=== PATIENT | male | born 1955 | race Caucasian/White ===

== ENCOUNTER 2020-02-20 07:19 | Outpatient (REF) | payer OTHER, SELFPAY ==
[2020-02-20 08:32] LABS: Prostate Specific Antigen 0.63 ng/mL (<0.05-4.0)
== END 2020-02-20 07:20 | disposition home or self-care (01) ==
LOC: HO.LAB 07:19
PROVIDERS: PCP Nurse Practitioner Family; Visit Provider Urology
DX: C61 Malignant neoplasm of prostate (principal)
CPT/HCPCS: 84153

== ENCOUNTER → 2020-02-26 14:01 | Outpatient (BNVA) | payer OTHER, SELFPAY | PROVIDERS: PCP Nurse Practitioner Family; Referring Provider Nurse Practitioner Family; Visit Provider Urology | DX: Z76.89 Persons encountering health services in other specified circumstances (principal) ==

== ENCOUNTER → 2020-02-26 15:33 | Outpatient (BNVA) | payer OTHER, SELFPAY | PROVIDERS: PCP Nurse Practitioner Family; Visit Provider Urology | DX: Z76.89 Persons encountering health services in other specified circumstances (principal) ==

== ENCOUNTER 2020-03-08 07:32 | Outpatient (REF) | payer OTHER, SELFPAY ==
[2020-03-08 07:36] VITALS: BP 148/71; PULSE 73; RESP 16; TEMP 36.2; O2SAT 99
[2020-03-08 07:41] VITALS: BMI 31.1
[2020-03-08 08:30] VITALS: BP 130/70; PULSE 96; RESP 16; O2SAT 97
--- NOTE | 2020-03-08 08:30 | MHC.SHP ---
Pre-Procedural Eval Section A The patient is an INPATIENT: No Changes since office visit: No Cold of Flu in the past 2 weeks, No New Medical Problems, No Changes in Medication and No Patient answered all questions The History & Physical has been completed within 30 days and I have reviewed it.: Yes Section B Chief Complaint: malignant neoplasm of prostate Allergies: Allergies Allergy/AdvReac Type Severity Reaction Status Date / Time No Known Allergies Allergy Mild NOT Unverified 11/26/19 14:39 [No Known Allergies*] APPLICABLE Plan I have reviewed the history and physical and performed a pertinent physical examination on my patient. No changes have occurred unless specified. - TRUS biopsy for cancer
--- NOTE | 2020-03-08 08:31 | W.PM.OPN ---
Operative Note Operative Note Date of Service: 03/08/20 Narrative: Preoperative diagnosis: Elevated PSA Postoperative diagnosis: Elevated PSA Procedure: 1. transrectal ultrasound measurement of prostate 2. transrectal ultrasound-guided pudendal nerve block 3. transrectal ultrasound-guided prostate biopsy 12 core Surgeon: Dr. Lake Marquez Anesthetic: Local Indications for procedure: Prostate Cancer Procedure: After informed consent was verified, the patient was brought into the procedure area and lay left-hand side down on the table. Patient identity confirmed. Perioperative antibiotics confirmed. Gel was placed per rectum Ultrasound probe was placed per rectum The prostate was measured in 3 dimensions Total volume equals 25 gm There were significant bilateral calcifications noted and the prostate was homogeneous in nature A ultrasound-guided pudendal nerve block was performed using 10 cc of 1% lidocaine. 8 cc was placed at the base and 2 cc of the apex. A 12 core biopsy was performed with 6 cores each side. Two cores were taken at the apex, mid and base. Cores were spaced between lateral and medial. He tolerated the procedure well. Was able to ambulate to bathroom after 5 minutes. Printed instructions regarding antibiotic use and common side effects such as low-grade temperature and bleeding were given.
--- NOTE | 2020-03-08 08:32 | PM.OP ---
Brief Operative Note Date of Service: 03/08/20 Pre-op diagnosis: prostate cancer Post-op diagnosis: same Procedure: 1.) Transrectal ultrasound guided 1) prostate measurement b) guided nerve block prostate c) 12 core biopsy Surgeon: Lake Marquez MD Anesthesia: local Estimated blood loss (mL): 0 Pathology: other (prostate 12 core) Condition: stable Disposition: same day
== END 2020-03-08 07:33 | disposition home or self-care (01) ==
LOC: HO.MS 07:32
PROVIDERS: PCP Nurse Practitioner Family; Visit Provider Urology
PROC: (CPT 55700; principal; 2020-03-08 08:00)
DX: C61 Malignant neoplasm of prostate (principal); N41.9 Inflammatory disease of prostate, unspecified; R97.20 Elevated prostate specific antigen [PSA]
CPT/HCPCS: 55700; 76942; 88305; 88344

== ENCOUNTER → 2020-03-18 09:23 | Outpatient (BNVA) | payer OTHER, SELFPAY | PROVIDERS: PCP Nurse Practitioner Family; Visit Provider Urology | DX: Z76.89 Persons encountering health services in other specified circumstances (principal) ==

== ENCOUNTER 2020-04-11 04:44 | Inpatient (IN) | payer OTHER, SELFPAY ==
[2020-04-11] VITALS (8 sets, daily range): BP systolic 120–169; BP diastolic 43–82; PULSE 58–97; RESP 14–20; TEMP 36.4–36.9; O2SAT 94–98; BMI 32.5; BMI 31.3
[2020-04-11 05:30] LABS: Glucose Urine UA NEG (NEG); Leukocyte Esterase Urine NEG (NEG); Nitrite Urine NEG (NEG); Specific Gravity - Urine >= 1.030 (1.005-1.025); Urine Blood TRACE (NEG); Urine Ketones 5 MG/DL (NEG); Urine Protein NEG (NEG-TRACE)
[2020-04-11 05:31] LABS: Appearance Urine CLEAR; Color Urine AMBER
[2020-04-11 05:40] LABS: Granular Casts Urine 0-2 /LPF; Mucus Urine 4+ /LPF; RBC Urine 0-2 /HPF (0); Squamous Epithelial Cell Urine 1+ /LPF; WBC Urine 0-2 /HPF (0-4)
--- NOTE | 2020-04-11 06:11 | ED.ABDPAIN ---
HPI - Abdominal Pain General Chief Complaint: Abdominal Pain Stated Complaint: Abd cramping Time Seen by Provider: 04/11/20 06:11 Source: patient Mode of arrival: ambulatory History of Present Illness HPI narrative: This is a 64-year-old male with significant past medical history of CAD, hypertension, prostate CA who presents with lower abdominal crampy like pain, nonradiating, associated with diarrhea and bright red blood at the end of the diarrheal episodes. This all started yesterday afternoon at approximately 4:00 p.m. and has not been associated with fever, chills, nausea, vomiting, shortness of breath, or chest pain. Patient also denies any urinary pain/burning/frequency. Related Data Home Medications Medication Instructions Recorded Confirmed amlodipine 5 mg tablet 5 mg PO DAILY 02/26/20 atorvastatin 20 mg tablet 20 mg PO DAILY 02/26/20 furosemide 40 mg tablet mg PO 02/26/20 metoprolol tartrate 50 mg tablet 75 mg PO BID 02/26/20 Previous Rx's Medication Instructions Recorded lisinopril 40 mg tablet 40 mg PO DAILY 90 Days #90 tab 12/28/19 finasteride 5 mg tablet 5 mg PO DAILY 90 Days #90 tab 02/16/20 Allergies Allergy/AdvReac Type Severity Reaction Status Date / Time No Known Allergies Allergy Mild NOT Verified 04/11/20 05:18 [No Known Allergies*] APPLICABLE Review of Systems Review of Systems Pertinent positives and negatives as stated in HPI 10 point review of systems is otherwise negative. Physical Exam Vital Signs: Vital Signs: Last Vital Signs Temp 98.4 F 04/11/20 05:19 Pulse 58 04/11/20 05:19 Resp 14 04/11/20 05:19 BP 169/70 H 04/11/20 05:19 Pulse Ox 97 04/11/20 05:19 Body Mass Index 32.5 VITAL SIGNS: Reviewed. GENERAL: Well developed, well nourished, in no acute distress. HEAD: Normocephalic/atraumatic, NECK: Supple, no adenopathy LUNGS: Normal breath sounds. No adventitious sounds or accessory muscle use. SpO2<97> CARDIOVASCULAR: Regular rate and rhythm without noted murmurs, no JVD or lower extremity edema. ABDOMEN: Soft, non-tender, non-distended with bowel sounds. PHYLLIS: No inflamed external hemorrhoids, rectal vault empty but able to obtain sample dark red blood, good rectal tone SKIN: Inspection of the skin reveals no rashes NEUROLOGIC: Alert and oriented x 4. Course Course Course Narrative: This is a 64-year-old male with history and clinical presentation suggestive of ischemic colitis, diverticular bleeding, diverticulitis, less likely gastroenteritis. Review of all investigations negative for evidence of anemia at this time, leukocytosis present and treated with IV Zosyn/blood cultures/lactic acid. CT scan pending to differentiate between ischemic versus diverticular GI bleed. Case discussed with inpatient hospitalist team who is agreeable for admission. MDM - Abdominal Pain Lab Data Result diagrams: 04/11/20 06:09 04/11/20 06:09 Labs: Lab Results 04/11/20 04/11/20 04/11/20 Range/Units 05:23 05:23 05:23 WBC Cancelled RBC Cancelled Hgb Cancelled Hct Cancelled MCV Cancelled MCH Cancelled MCHC Cancelled RDW Cancelled Plt Count Cancelled MPV Cancelled Immature Gran % (Auto) Cancelled Neut % (Auto) Cancelled Lymph % (Auto) Cancelled [place] % (Auto) Cancelled Eos % (Auto) Cancelled Baso % (Auto) Cancelled Lymph # (Auto) Cancelled [place] # (Auto) Cancelled Eos # (Auto) Cancelled Baso # (Auto) Cancelled Abs Immat Gran (auto) Cancelled Absolute Neuts (auto) Cancelled Absolute Nucleated RBC Cancelled Nucleated RBC % (auto) Cancelled Smear Tech's Comments PT 13.7 H (10.8-13.0) SEC INR 1.2 H (0.9-1.1) APTT 35.8 (24.1-38.0) SEC Hold Blue Top SEE NOTE Sodium Cancelled Potassium Cancelled Chloride Cancelled Carbon Dioxide Cancelled Anion Gap Cancelled BUN Cancelled Creatinine Cancelled Estim Creat Clear Calc Cancelled Estimated GFR Cancelled Random Glucose Cancelled Lactic Acid (0.5-2.0) mmol/L Calcium Cancelled Total Bilirubin Cancelled AST Cancelled ALT Cancelled Alkaline Phosphatase Cancelled Total Protein Cancelled Albumin Cancelled Urine Color Urine Appearance Urine pH (5.0-8.0) Ur Specific [place] (1.005-1.025) Urine Protein (NEG-TRACE) MG/DL Urine Glucose (UA) (NEG) MG/DL Urine Ketones (NEG) MG/DL Urine Blood (NEG) Urine Nitrite (NEG) Ur Leukocyte Esterase (NEG) Urine RBC (0) /HPF Urine WBC (0-4) /HPF Ur Squamous Epith Cells /LPF Urine Bacteria /LPF Granular Casts /LPF Urine Mucus /LPF Stool Occult Blood (NEG) Blood Type 04/11/20 04/11/20 04/11/20 Range/Units 05:23 06:09 06:09 WBC 15.5 H RBC 5.18 Hgb 15.1 Hct 46.3 MCV 89.4 MCH 29.2 MCHC 32.6 RDW 12.8 Plt Count 197 MPV 10.4 Immature Gran % (Auto) 0.3 Neut % (Auto) 75.2 H Lymph % (Auto) 12.4 L [place] % (Auto) 11.3 H Eos % (Auto) 0.3 Baso % (Auto) 0.5 Lymph # (Auto) 1.9 [place] # (Auto) 1.8 H Eos # (Auto) 0.1 Baso # (Auto) 0.1 Abs Immat Gran (auto) 0.05 H Absolute Neuts (auto) 11.7 H Absolute Nucleated RBC 0.000 Nucleated RBC % (auto) 0.0 Smear Tech's Comments VERIFIED PT (10.8-13.0) SEC INR (0.9-1.1) APTT (24.1-38.0) SEC Hold Blue Top Sodium 139 Potassium 4.8 Chloride 103 Carbon Dioxide 31 H Anion Gap 10 L BUN 22 H Creatinine 1.04 Estim Creat Clear Calc 90.2 Estimated GFR > 60 Random Glucose 130 H Lactic Acid (0.5-2.0) mmol/L Calcium 8.9 Total Bilirubin 1.0 AST 18 ALT 27 Alkaline Phosphatase 81 Total Protein 6.9 Albumin 4.0 Urine Color PRINCESS Urine Appearance CLEAR Urine pH 6.0 (5.0-8.0) Ur Specific [place] >= 1.030 H (1.005-1.025) Urine Protein NEG (NEG-TRACE) MG/DL Urine Glucose (UA) NEG (NEG) MG/DL Urine Ketones 5 (NEG) MG/DL Urine Blood TRACE (NEG) Urine Nitrite NEG (NEG) Ur Leukocyte Esterase NEG (NEG) Urine RBC 0-2 (0) /HPF Urine WBC 0-2 (0-4) /HPF Ur Squamous Epith Cells 1+ /LPF Urine Bacteria NONE /LPF Granular Casts 0-2 /LPF Urine Mucus 4+ /LPF Stool Occult Blood (NEG) Blood Type 04/11/20 04/11/20 04/11/20 Range/Units 06:19 07:13 07:13 WBC RBC Hgb Hct MCV MCH MCHC RDW Plt Count MPV Immature Gran % (Auto) Neut % (Auto) Lymph % (Auto) [place] % (Auto) Eos % (Auto) Baso % (Auto) Lymph # (Auto) [place] # (Auto) Eos # (Auto) Baso # (Auto) Abs Immat Gran (auto) Absolute Neuts (auto) Absolute Nucleated RBC Nucleated RBC % (auto) Smear Tech's Comments PT (10.8-13.0) SEC INR (0.9-1.1) APTT (24.1-38.0) SEC Hold Blue Top Sodium Potassium Chloride Carbon Dioxide Anion Gap BUN Creatinine Estim Creat Clear Calc Estimated GFR Random Glucose Lactic Acid 1.3 (0.5-2.0) mmol/L Calcium Total Bilirubin AST ALT Alkaline Phosphatase Total Protein Albumin Urine Color Urine Appearance Urine pH (5.0-8.0) Ur Specific [place] (1.005-1.025) Urine Protein (NEG-TRACE) MG/DL Urine Glucose (UA) (NEG) MG/DL Urine Ketones (NEG) MG/DL Urine Blood (NEG) Urine Nitrite (NEG) Ur Leukocyte Esterase (NEG) Urine RBC (0) /HPF Urine WBC (0-4) /HPF Ur Squamous Epith Cells /LPF Urine Bacteria /LPF Granular Casts /LPF Urine Mucus /LPF Stool Occult Blood POS (NEG) Blood Type O Positive Discharge Plan Discharge Clinical Impression: GI bleed Qualifiers: GI bleed type/associated pathology: unspecified gastrointestinal hemorrhage type Qualified Code(s): K92.2 - Gastrointestinal hemorrhage, unspecified Patient Disposition: Admitted As Inpatient [facility] Past Medical History Source: nursing notes reviewed Medical History CAD (coronary artery disease) Hypertension Prostate cancer Social History Social History Alcohol intake: current Alcohol intake frequency: a few times a month Smoking Status: Never smoker Use of substances other than those prescribed or required for medical reasons: No Advance Directives: No Advance Directives Information Provided: No
[2020-04-11 06:18] LABS: Basophils Absolute Auto 0.1 X10*3/uL (0.0-0.2); Basophils Percent Auto 0.5 % (0-2); Eosinophils Absolute Auto 0.1 X10*3/uL (0.0-0.4); Eosinophils Percent Auto 0.3 % (0-4); Hematocrit 46.3 % (42-52); Hemoglobin 15.1 g/dl (14.0-18.0); Imm Gran Abs Auto 0.05 X10*3/uL (0.00-0.03); Imm Gran Pct Auto 0.3 % (0.0-0.4); Lymphocytes Absolute Auto 1.9 X10*3/uL (1.2-4.9); Lymphocytes Percent Auto 12.4 % (20-40); MANUAL DIFF FLAG SCAN; Mean Corpuscular HGB Conc 32.6 g/dl (31.0-36.0); Mean Corpuscular Hemoglobin 29.2 pg (27.0-33.0); Mean Corpuscular Volume 89.4 fL (80-98); Mean Platelet Volume 10.4 fL (9.4-12.4); Monocytes Absolute Auto 1.8 X10*3/uL (0.1-1.2); Monocytes Percent Auto 11.3 % (2-11); Neutrophils Absolute Auto 11.7 X10*3/uL (2.0-8.3); Neutrophils Percent Auto 75.2 % (45-73); Platelet Count 197 X10*3/uL (160-400); Red Blood Count 5.18 X10*6/uL (4.60-5.80); Red Cell Distribution Width 12.8 % (11.0-16.0); SCAN SMEAR FLAG 1; White Blood Count 15.5 X10*3/uL (4.8-10.8)
[2020-04-11 06:34] LABS: OBS Int Ctl Valid YES; OBS1 POS (NEG)
[2020-04-11 06:40] LABS: SLIDE REVIEW VERIFIED
[2020-04-11 06:51] LABS: Alanine Aminotransferase 27 U/L (0-40); Alkaline Phosphatase 81 U/L (39-117); Anion Gap 10 (12-20); Aspartate Amino Transferase 18 U/L (5-37); Blood Urea Nitrogen 22 mg/dL (9-16); Calcium 8.9 mg/dL (8.4-10.2); Carbon Dioxide 31 mmol/L (22-29); Chloride 103 mmol/L (96-108); Creatinine Clr Calc Pharmacy 90.2; Estimated Glomerular Filt Rate > 60; Glucose Random 130 mg/dL (60-115); Potassium 4.8 mmol/L (3.3-5.1); Sodium 139 mmol/L (135-145); Total Protein 6.9 g/dL (6.5-8.0)
--- NOTE | 2020-04-11 07:00 | CT_ITS ---
EXAMINATION: CT OF THE ABDOMEN AND PELVIS WITH IV CONTRAST CLINICAL INFORMATION: GI bleeding COMPARISON: None TECHNIQUE: Axial images through the abdomen and pelvis with and without IV contrast. Patient received 85 mL of Omnipaque 350 intravenous contrast. Patient dose 201 6 mg/cm. This CT examination was performed using dose optimization techniques as appropriate, variously including the following: *Automated exposure control *Adjustment of mA and/or kV according to patient size (this includes techniques or standardized protocols for targeted exams where dose is matched to indication/reason for exam; i.e. extremities or head) *Use of iterative reconstruction technique FINDINGS: The lung bases are clear. The liver is low in attenuation suggestive of mild fatty infiltration. There are gallstones in the gallbladder. There is no biliary duct dilatation. The pancreas, spleen, adrenal glands and kidneys are unremarkable. The bladder is unremarkable. The prostate gland is unremarkable. There is wall thickening and edema of the left colon and sigmoid colon. There is stranding of the surrounding fat and slight prominence of the vasa recta. Appearance is compatible with colitis. No evidence of active GI bleeding is seen. The appendix is normal. The stomach is normal. There is shotty bilateral inguinal lymphadenopathy, right greater than left. No enlarged lymph nodes are seen. There is no ascites. There is evidence of atherosclerotic disease. No aneurysm is seen. The celiac axis, SMA and DEVON are patent. There is a right inguinal hernia containing fat. There are degenerative changes of the spine. CT/CT gi bleed abd pel wo/w con IMPRESSION: Colitis of the left colon and sigmoid colon. No evidence of active GI bleeding. Gallstones. Mild fatty infiltration of the liver.
[2020-04-11 07:08] LABS: INTERNATIONAL NORM RATIO 1.2 (0.9-1.1); Prothrombin Time 13.7 SEC (10.8-13.0)
[2020-04-11 07:11] LABS: Partial Thromboplastin Time 35.8 SEC (24.1-38.0)
[2020-04-11 07:45] LABS: Lactic Acid 1.3 mmol/L (0.5-2.0)
[2020-04-11] MEDS: Piperacillin Sodium/Tazobactam 3.375 GM in 0.9 % Sodium Chloride 50 ML IV (08:00)
[2020-04-11] MEDS: iohexoL 350 MG/ML 100 ML INFUS..BTL IV (09:04)
[2020-04-11 09:31] LABS: COVID-19 Test Negative (Negative); IDNOW Serial# 9DD0AD1C
--- NOTE | 2020-04-11 10:21 | PM.IMHP ---
History of Present Illness Date of Service: 04/11/20 Chief Complaint: Abdominal pain and bleeding 64 year old man presenting with abdominal cramping and red blood per rectum. He reported that its started suddenly yesterday with several episodes of diarrhea/loose stools. He denied nausea or vomiting. He takes a baby aspirin daily no other nsaids. Only rare alcohol use. His HH and blood pressure are stable, no further reported episodes of bleeding at the time of the interview. All labs within acceptable limits. Abd CT showed Colitis of the left colon and sigmoid colon without evidence of active GI bleeding, gallstones, Mild fatty infiltration of the liver. Review of Systems Review of Systems: Denies any recent fever chills or decrease in appetite respiratory denies any shortness of breath coverage production cardiovascular is adjustment of any PND or edema gastrointestinal See HPI genitourinary denies any dysuria frequency or hematuria musculoskeletal denies any joint pain or swelling neuropsych denies any weakness or seizures all other systems reviewed are negative [facility] Medical History CAD (coronary artery disease) Hypertension Prostate cancer Pertinent family history: No history of colon cancer Social History Alcohol intake: current Alcohol intake frequency: a few times a month Smoking Status: Never smoker Use of substances other than those prescribed or required for medical reasons: No Advance Directives: No Advance Directives Information Provided: No Meds Allergies Allergy/AdvReac Type Severity Reaction Status Date / Time No Known Allergies Allergy Mild NOT Verified 04/11/20 05:18 [No Known Allergies*] APPLICABLE Home Medications Medication Instructions Recorded Confirmed Type amlodipine 5 mg tablet 5 mg PO DAILY 02/26/20 04/11/20 History atorvastatin 20 mg tablet 20 mg PO DAILY 02/26/20 04/11/20 History furosemide 40 mg tablet 40 mg PO DAILY 02/26/20 04/11/20 History metoprolol tartrate 50 mg tablet 75 mg PO BID 02/26/20 04/11/20 History Physical Exam Vital Signs and Narrative: Vital Signs: Last Vital Signs Temp 98.4 F 04/11/20 05:19 Pulse 97 04/11/20 08:00 Resp 18 04/11/20 08:00 BP 164/65 H 04/11/20 08:00 Pulse Ox 98 04/11/20 08:00 Body Mass Index 32.5 Appearing in no acute distress head is normocephalic atraumatic eyes pupils are PERRLA sclera is anicteric mouth throat mucous membranes are intact and moist neck is supple no lymphadenopathy, no JVD noted lung sounds are clear to auscultation heart regular rate rhythm, clear S1, S2 positive bowel sounds, abdomen is soft, nontender neuro patient is alert x3, no focal deficits Results Labs CBC and Chem 7: 04/11/20 06:09 04/11/20 06:09 Labs: Laboratory Results - last 24 hr 04/11/20 04/11/20 04/11/20 05:23 05:23 05:23 MCV Cancelled MCH Cancelled MCHC Cancelled RDW Cancelled Plt Count Cancelled MPV Cancelled Immature Gran % (Auto) Cancelled Neut % (Auto) Cancelled Lymph % (Auto) Cancelled [place] % (Auto) Cancelled Eos % (Auto) Cancelled Baso % (Auto) Cancelled Lymph # (Auto) Cancelled [place] # (Auto) Cancelled Eos # (Auto) Cancelled Baso # (Auto) Cancelled Abs Immat Gran (auto) Cancelled Absolute Neuts (auto) Cancelled Absolute Nucleated RBC Cancelled Nucleated RBC % (auto) Cancelled Smear Tech's Comments PT 13.7 H INR 1.2 H APTT 35.8 Hold Blue Top SEE NOTE Anion Gap Cancelled Estim Creat Clear Calc Cancelled Estimated GFR Cancelled Random Glucose Cancelled Lactic Acid Calcium Cancelled Total Bilirubin Cancelled AST Cancelled ALT Cancelled Alkaline Phosphatase Cancelled Total Protein Cancelled Albumin Cancelled Urine Color Urine Appearance Urine pH Ur Specific [place] Urine Protein Urine Glucose (UA) Urine Ketones Urine Blood Urine Nitrite Ur Leukocyte Esterase Urine RBC Urine WBC Ur Squamous Epith Cells Urine Bacteria Granular Casts Urine Mucus Stool Occult Blood COVID-19 (DAX) COVID-19 Clin Com Blood Type Antibody Screen 04/11/20 04/11/20 04/11/20 05:23 06:09 06:09 MCV 89.4 MCH 29.2 MCHC 32.6 RDW 12.8 Plt Count 197 MPV 10.4 Immature Gran % (Auto) 0.3 Neut % (Auto) 75.2 H Lymph % (Auto) 12.4 L [place] % (Auto) 11.3 H Eos % (Auto) 0.3 Baso % (Auto) 0.5 Lymph # (Auto) 1.9 [place] # (Auto) 1.8 H Eos # (Auto) 0.1 Baso # (Auto) 0.1 Abs Immat Gran (auto) 0.05 H Absolute Neuts (auto) 11.7 H Absolute Nucleated RBC 0.000 Nucleated RBC % (auto) 0.0 Smear Tech's Comments VERIFIED PT INR APTT Hold Blue Top Anion Gap 10 L Estim Creat Clear Calc 90.2 Estimated GFR > 60 Random Glucose 130 H Lactic Acid Calcium 8.9 Total Bilirubin 1.0 AST 18 ALT 27 Alkaline Phosphatase 81 Total Protein 6.9 Albumin 4.0 Urine Color [place]ESS Urine Appearance CLEAR Urine pH 6.0 Ur Specific [place] >= 1.030 H Urine Protein NEG Urine Glucose (UA) NEG Urine Ketones 5 Urine Blood TRACE Urine Nitrite NEG Ur Leukocyte Esterase NEG Urine RBC 0-2 Urine WBC 0-2 Ur Squamous Epith Cells 1+ Urine Bacteria NONE Granular Casts 0-2 Urine Mucus 4+ Stool Occult Blood COVID-19 (DAX) COVID-[place] Blood Type Antibody Screen 04/11/20 04/11/20 04/11/20 06:19 07:13 07:13 MCV MCH MCHC RDW Plt Count MPV Immature Gran % (Auto) Neut % (Auto) Lymph % (Auto) [place] % (Auto) Eos % (Auto) Baso % (Auto) Lymph # (Auto) [place] # (Auto) Eos # (Auto) Baso # (Auto) Abs Immat Gran (auto) Absolute Neuts (auto) Absolute Nucleated RBC Nucleated RBC % (auto) Smear Tech's Comments PT INR APTT Hold Blue Top Anion Gap Estim Creat Clear Calc Estimated GFR Random Glucose Lactic Acid 1.3 Calcium Total Bilirubin AST ALT Alkaline Phosphatase Total Protein Albumin Urine Color Urine Appearance Urine pH Ur Specific [place] Urine Protein Urine Glucose (UA) Urine Ketones Urine Blood Urine Nitrite Ur Leukocyte Esterase Urine RBC Urine WBC Ur Squamous Epith Cells Urine Bacteria Granular Casts Urine Mucus Stool Occult Blood POS COVID-19 (DAX) COVID-[place] Com Blood Type O Positive Antibody Screen NEGATIVE 04/11/20 09:03 MCV MCH MCHC RDW Plt Count MPV Immature Gran % (Auto) Neut % (Auto) Lymph % (Auto) [place] % (Auto) Eos % (Auto) Baso % (Auto) Lymph # (Auto) [place] # (Auto) Eos # (Auto) Baso # (Auto) Abs Immat Gran (auto) Absolute Neuts (auto) Absolute Nucleated RBC Nucleated RBC % (auto) Smear Tech's Comments PT INR APTT Hold Blue Top Anion Gap Estim Creat Clear Calc Estimated GFR Random Glucose Lactic Acid Calcium Total Bilirubin AST ALT Alkaline Phosphatase Total Protein Albumin Urine Color Urine Appearance Urine pH Ur Specific [place] Urine Protein Urine Glucose (UA) Urine Ketones Urine Blood Urine Nitrite Ur Leukocyte Esterase Urine RBC Urine WBC Ur Squamous Epith Cells Urine Bacteria Granular Casts Urine Mucus Stool Occult Blood COVID-19 (DAX) Negative COVID-19 Clin Com See Note Blood Type Antibody Screen Imaging Radiologist's Impressions: Impressions Abdomen/Pelvis CT 04/11/20 07:00 IMPRESSION: Colitis of the left colon and sigmoid colon. No evidence of active GI bleeding. Gallstones. Mild fatty infiltration of the liver. Assessment and Plan (1) GI bleed: Qualifiers: GI bleed type/associated pathology: unspecified gastrointestinal hemorrhage type Qualified Code(s): K92.2 - Gastrointestinal hemorrhage, unspecified Status: Acute 64 year old man admitted with GI Bleed. Abdominal CT showed colitis. Colitis. Levaquin and Flagyl. GI to follow. Check HH this evening. Hypertension. Stable, continue home medications. Prostate cancer. Under the management of urology. CAD. Continue Statin and BB. DVT prophylaxis with mechanical compression boots. Discussed witH Dr. Arizmendi Full code
--- NOTE | 2020-04-11 10:53 | PC.NURSE ---
seen by hospitalist waiting on bed assigment
[2020-04-11 12:25] LABS: Hematocrit 44.7 % (42-52); Hemoglobin 14.7 g/dl (14.0-18.0)
--- NOTE | 2020-04-11 14:18 | P.EN_ITS ---
Event Note Date of Service: 04/11/20 Event Note: 64-year-old gentleman with past medical history of hypertension, c oronary artery disease prostate cancer presented to [facility] with acute onset of abdominal cramping associated with diarrhea and bloody stool patient denies any prior similar episodes denies any history of colon cancer denies any weight loss, he denies any fever chills no other family member with similar symptoms, blood for showed elevated WBC stable hematocrit and electrolytes showed colitis of the left colon and sigmoid colons with no evidence of active GI bleed. Exam Patient awake alert no distress Abdomen soft mild tenderness lower abdomen, no rebound no rigidity no guarding bowel sounds audible Extremities no edema Assessment and plan Acute Colitis Will continue IV Flagyl and Levaquin follow CBC, IV fluid and clear liquid diet. Will send stool studies follow blood cultures, hold diuretics.
[2020-04-11] MEDS: levoFLOXacin/D5W 500 MG/100 ML PIGGYBACK 100 MG IV (14:22)
[2020-04-11] MEDS: metroNIDAZOLE/NS 500 MG/100 ML PIGGYBACK 100 MG IV ×2 (14:23→20:18)
--- NOTE | 2020-04-11 15:49 | PM.EVENT ---
Event Note Date of Service: 04/11/20 Event Note: GI consult dictated colonoscopy planned for 04/12 to further evaluate colitis. pt aware of risks and benefits and agrees to proceed
--- NOTE | 2020-04-11 17:39 | CONS_ITS ---
DATE OF SERVICE: 04/11/2020 REFERRING PHYSICIAN: Billie Mendez NP REASON FOR CONSULTATION: GI bleeding and colitis. HISTORY OF PRESENT ILLNESS: The patient is a pleasant 64-year-old man, who was admitted to the hospital after presenting to the emergency room yesterday with crampy abdominal pain and rectal bleeding. Symptoms began the day before admission and were not associated with fevers or chills. He was evaluated in the emergency department with laboratory studies and subsequently underwent CT scanning, which is reviewed. This is interpreted as showing colitis involving the left colon and sigmoid colon. Fatty liver was also noted. The patient denies any prior history of colitis. He does have a history of colon polyps and the last underwent colonoscopy on March 30, 2016, which showed sigmoid diverticulosis and small internal hemorrhoids. Followup colonoscopy was recommended for 5 years. PAST MEDICAL HISTORY: 1. Coronary artery disease with history of bypass surgery. 2. Hypertension. 3. Prostate cancer. 4. Colon polyps. CURRENT MEDICATIONS: Current medication list is reviewed in the chart. ALLERGIES: THERE ARE NONE REPORTED. FAMILY HISTORY: This is reviewed with the patient and is noncontributory. SOCIAL HISTORY: There is no current tobacco, alcohol, or substance abuse. REVIEW OF SYSTEMS: SKIN: No pruritus. HEENT: Negative. CARDIOPULMONARY: No shortness of breath or chest pain. GASTROINTESTINAL: As above. GENITOURINARY: Negative. NEUROPSYCHIATRIC: Negative. PHYSICAL EXAMINATION: GENERAL: Shows a pleasant male, in no acute distress. SKIN: Anicteric. HEENT: No scleral icterus. NECK: Without lymphadenopathy or thyromegaly. LUNGS: Clear. HEART: Regular rate and rhythm. S1, S2. No murmur. ABDOMEN: Soft. Bowel sounds are present. No organomegaly is noted. There is no guarding or rebound. EXTREMITIES: Without edema. LABORATORY DATA: Shows a white blood cell count of 15.5, hematocrit 46.3. CT scanning is reviewed. IMPRESSION: Colitis. We discussed the differential diagnosis for colitis including infectious, ischemic and chronic inflammatory bowel disease. At this point, he appears stable without any evidence of significant GI blood loss. I did discuss with him colonoscopy for further evaluation. He understands risks and benefits and agrees to proceed. This will be scheduled for tomorrow. MD VIK Mathews/MIKAELA / [phone]
[2020-04-11] MEDS: Dextrose 5 % and 0.45 % NaCl 1,000 ML 80 ML IVCONT (18:36)
[2020-04-11] MEDS: 0.9 % Sodium Chloride Flush 3 ML SYRINGE IVFLUSH ×2 (18:36→20:19)
[2020-04-11] MEDS: Metoprolol Tartrate 50 MG TABLET 75 MG PO (20:19)
[2020-04-11] MEDS: PEG 3350/Na Sulf,Bicarb,Cl/KCL 4,000 ML SOLN.RECON 4000 ML PO (20:53)
[2020-04-12] VITALS (7 sets, daily range): BP systolic 96–155; BP diastolic 50–79; PULSE 60–109; RESP 12–20; TEMP 36.7–37.2; O2SAT 95–98; BMI 32.5
[2020-04-12] MEDS: metroNIDAZOLE/NS 500 MG/100 ML PIGGYBACK 100 MG IV ×3 (04:35→20:15)
[2020-04-12 06:29] LABS: Basophils Absolute Auto 0.1 X10*3/uL (0.0-0.2); Basophils Percent Auto 0.6 % (0-2); Eosinophils Absolute Auto 0.1 X10*3/uL (0.0-0.4); Eosinophils Percent Auto 0.7 % (0-4); Hematocrit 45.2 % (42-52); Hemoglobin 14.5 g/dl (14.0-18.0); Imm Gran Abs Auto 0.05 X10*3/uL (0.00-0.03); Imm Gran Pct Auto 0.4 % (0.0-0.4); Lymphocytes Absolute Auto 2.1 X10*3/uL (1.2-4.9); Lymphocytes Percent Auto 15.7 % (20-40); MANUAL DIFF FLAG SCAN; Mean Corpuscular HGB Conc 32.1 g/dl (31.0-36.0); Mean Corpuscular Hemoglobin 28.8 pg (27.0-33.0); Mean Corpuscular Volume 89.9 fL (80-98); Mean Platelet Volume 10.6 fL (9.4-12.4); Monocytes Absolute Auto 1.9 X10*3/uL (0.1-1.2); Monocytes Percent Auto 13.7 % (2-11); Neutrophils Absolute Auto 9.3 X10*3/uL (2.0-8.3); Neutrophils Percent Auto 68.9 % (45-73); Platelet Count 186 X10*3/uL (160-400); Red Blood Count 5.03 X10*6/uL (4.60-5.80); Red Cell Distribution Width 13.2 % (11.0-16.0); SCAN SMEAR FLAG 1; White Blood Count 13.5 X10*3/uL (4.8-10.8)
[2020-04-12 07:04] LABS: Anion Gap 13 (12-20); Blood Urea Nitrogen 13 mg/dL (9-16); Calcium 8.1 mg/dL (8.4-10.2); Carbon Dioxide 28 mmol/L (22-29); Chloride 103 mmol/L (96-108); Creatinine Clr Calc Pharmacy 103.5; Estimated Glomerular Filt Rate > 60; Glucose Random 112 mg/dL (60-115); Potassium 3.9 mmol/L (3.3-5.1); Sodium 140 mmol/L (135-145)
[2020-04-12] MEDS: Atorvastatin Calcium 20 MG TABLET PO (07:46)
[2020-04-12] MEDS: Metoprolol Tartrate 50 MG TABLET 75 MG PO ×2 (07:46→20:19)
[2020-04-12] MEDS: Furosemide 40 MG TABLET PO (07:46)
[2020-04-12] MEDS: Finasteride 5 MG TABLET PO (07:47)
[2020-04-12] MEDS: 0.9 % Sodium Chloride Flush 3 ML SYRINGE IVFLUSH ×2 (07:47→14:13)
[2020-04-12] MEDS: amLODIPine Besylate 5 MG TABLET PO (07:47)
[2020-04-12 08:43] LABS: SLIDE REVIEW VERIFIED
--- NOTE | 2020-04-12 08:44 | MHC.CM.PN ---
pt lives c his in their home. he reports being independent in his care. he works a job and drive a car. pt's can help him should he have any needs, this will include a ride home at dc. pt denies the need for vna at dc. dc plan is home no svcs. cm to cont. to follow.
--- NOTE | 2020-04-12 10:59 | P.CONAN_ITS ---
HPI - Anesthesia Eval Consult details Narrative: 64yo male patient here for colonoscopy [facility] Past Medical History Medical History CAD (coronary artery disease) Hypertension Prostate cancer Family History Family history of problems with anesthesia: No Surgical History Surgical History (Updated 04/12/20 @ 11:11 by Joanna Dubon) S/P CABG x 4 History of Problems with Anesthesia: No Social History Social History Alcohol intake: current Alcohol intake frequency: a few times a month Smoking Status: Never smoker Use of substances other than those prescribed or required for medical reasons: No Currently Displaying Signs/Symptoms of Drug Intoxication Withdrawal: No Have you been hit, kicked, punched, or otherwise hurt by someone within the past year? If so, by whom?: No Advance Directives: No Advance Directives Information Provided: No Do you have thoughts of harming others: None Do you have a plan to hurt others: No Plan Recently lost weight without trying: Unsure service: No Current occupational status: employed Meds Allergies Allergy/AdvReac Type Severity Reaction Status Date / Time No Known Allergies Allergy Mild NOT Verified 04/11/20 05:18 [No Known Allergies*] APPLICABLE Home Medications Medication Instructions Recorded Confirmed Type amlodipine 5 mg tablet 5 mg PO DAILY 02/26/20 04/11/20 History atorvastatin 20 mg tablet 20 mg PO DAILY 02/26/20 04/11/20 History furosemide 40 mg tablet 40 mg PO DAILY 02/26/20 04/11/20 History metoprolol tartrate 50 mg tablet 75 mg PO BID 02/26/20 04/11/20 History Exam Exam Date and Time: April 12, 2020 1059 Height,Weight and Vital Signs: Height 6 ft Weight 108.862 kg Last Vital Signs Temp 98.9 F 04/12/20 10:39 Pulse 67 04/12/20 10:39 Resp 18 04/12/20 10:39 BP 132/68 04/12/20 10:39 Pulse Ox 97 04/12/20 10:39 Pertinent Lab Results Pertinent Lab Results: Laboratory Tests 04/11/20 04/11/20 04/11/20 05:23 05:23 05:23 WBC Cancelled RBC Cancelled Hgb Cancelled Hct Cancelled MCV Cancelled MCH Cancelled MCHC Cancelled RDW Cancelled Plt Count Cancelled MPV Cancelled Immature Gran % (Auto) Cancelled Neut % (Auto) Cancelled Lymph % (Auto) Cancelled [place] % (Auto) Cancelled Eos % (Auto) Cancelled Baso % (Auto) Cancelled Lymph # (Auto) Cancelled [place] # (Auto) Cancelled Eos # (Auto) Cancelled Baso # (Auto) Cancelled Abs Immat Gran (auto) Cancelled Absolute Neuts (auto) Cancelled Absolute Nucleated RBC Cancelled Nucleated RBC % (auto) Cancelled Smear Tech's Comments PT 13.7 H INR 1.2 H APTT 35.8 Hold Blue Top SEE NOTE Sodium Cancelled Potassium Cancelled Chloride Cancelled Carbon Dioxide Cancelled Anion Gap Cancelled BUN Cancelled Creatinine Cancelled Estim Creat Clear Calc Cancelled Estimated GFR Cancelled Random Glucose Cancelled Lactic Acid Calcium Cancelled Total Bilirubin Cancelled AST Cancelled ALT Cancelled Alkaline Phosphatase Cancelled Total Protein Cancelled Albumin Cancelled Urine Color Urine Appearance Urine pH Ur Specific [place] Urine Protein Urine Glucose (UA) Urine Ketones Urine Blood Urine Nitrite Ur Leukocyte Esterase Urine RBC Urine WBC Ur Squamous Epith Cells Urine Bacteria Granular Casts Urine Mucus Stool Occult Blood COVID-19 (DAX) COVID-19 Clin Com Blood Type Antibody Screen 04/11/20 04/11/20 04/11/20 05:23 06:09 06:09 WBC 15.5 H RBC 5.18 Hgb 15.1 Hct 46.3 MCV 89.4 MCH 29.2 MCHC 32.6 RDW 12.8 Plt Count 197 MPV 10.4 Immature Gran % (Auto) 0.3 Neut % (Auto) 75.2 H Lymph % (Auto) 12.4 L [place] % (Auto) 11.3 H Eos % (Auto) 0.3 Baso % (Auto) 0.5 Lymph # (Auto) 1.9 [place] # (Auto) 1.8 H Eos # (Auto) 0.1 Baso # (Auto) 0.1 Abs Immat Gran (auto) 0.05 H Absolute Neuts (auto) 11.7 H Absolute Nucleated RBC 0.000 Nucleated RBC % (auto) 0.0 Smear Tech's Comments VERIFIED PT INR APTT Hold Blue Top Sodium 139 Potassium 4.8 Chloride 103 Carbon Dioxide 31 H Anion Gap 10 L BUN 22 H Creatinine 1.04 Estim Creat Clear Calc 90.2 Estimated GFR > 60 Random Glucose 130 H Lactic Acid Calcium 8.9 Total Bilirubin 1.0 AST 18 ALT 27 Alkaline Phosphatase 81 Total Protein 6.9 Albumin 4.0 Urine Color PRINCESS Urine Appearance CLEAR Urine pH 6.0 Ur Specific [place] >= 1.030 H Urine Protein NEG Urine Glucose (UA) NEG Urine Ketones 5 Urine Blood TRACE Urine Nitrite NEG Ur Leukocyte Esterase NEG Urine RBC 0-2 Urine WBC 0-2 Ur Squamous Epith Cells 1+ Urine Bacteria NONE Granular Casts 0-2 Urine Mucus 4+ Stool Occult Blood COVID-19 (DAX) COVID-19 Clin Com Blood Type Antibody Screen 04/11/20 04/11/20 04/11/20 06:19 07:13 07:13 WBC RBC Hgb Hct MCV MCH MCHC RDW Plt Count MPV Immature Gran % (Auto) Neut % (Auto) Lymph % (Auto) [place] % (Auto) Eos % (Auto) Baso % (Auto) Lymph # (Auto) [place] # (Auto) Eos # (Auto) Baso # (Auto) Abs Immat Gran (auto) Absolute Neuts (auto) Absolute Nucleated RBC Nucleated RBC % (auto) Smear Tech's Comments PT INR APTT Hold Blue Top Sodium Potassium Chloride Carbon Dioxide Anion Gap BUN Creatinine Estim Creat Clear Calc Estimated GFR Random Glucose Lactic Acid 1.3 Calcium Total Bilirubin AST ALT Alkaline Phosphatase Total Protein Albumin Urine Color Urine Appearance Urine pH Ur Specific [place] Urine Protein Urine Glucose (UA) Urine Ketones Urine Blood Urine Nitrite Ur Leukocyte Esterase Urine RBC Urine WBC Ur Squamous Epith Cells Urine Bacteria Granular Casts Urine Mucus Stool Occult Blood POS COVID-19 (DAX) COVID-19 Clin Com Blood Type O Positive Antibody Screen NEGATIVE 04/11/20 04/11/20 04/12/20 09:03 12:06 06:04 WBC 13.5 H RBC 5.03 Hgb 14.7 14.5 Hct 44.7 45.2 MCV 89.9 MCH 28.8 MCHC 32.1 RDW 13.2 Plt Count 186 MPV 10.6 Immature Gran % (Auto) 0.4 Neut % (Auto) 68.9 Lymph % (Auto) 15.7 L [place] % (Auto) 13.7 H Eos % (Auto) 0.7 Baso % (Auto) 0.6 Lymph # (Auto) 2.1 [place] # (Auto) 1.9 H Eos # (Auto) 0.1 Baso # (Auto) 0.1 Abs Immat Gran (auto) 0.05 H Absolute Neuts (auto) 9.3 H Absolute Nucleated RBC 0.000 Nucleated RBC % (auto) 0.0 Smear Tech's Comments VERIFIED PT INR APTT Hold Blue Top Sodium Potassium Chloride Carbon Dioxide Anion Gap BUN Creatinine Estim Creat Clear Calc Estimated GFR Random Glucose Lactic Acid Calcium Total Bilirubin AST ALT Alkaline Phosphatase Total Protein Albumin Urine Color Urine Appearance Urine pH Ur Specific [place] Urine Protein Urine Glucose (UA) Urine Ketones Urine Blood Urine Nitrite Ur Leukocyte Esterase Urine RBC Urine WBC Ur Squamous Epith Cells Urine Bacteria Granular Casts Urine Mucus Stool Occult Blood COVID-19 (DAX) Negative COVID-19 Played See Note Blood Type Antibody Screen 04/12/20 06:04 WBC RBC Hgb Hct MCV MCH MCHC RDW Plt Count MPV Immature Gran % (Auto) Neut % (Auto) Lymph % (Auto) [place] % (Auto) Eos % (Auto) Baso % (Auto) Lymph # (Auto) [place] # (Auto) Eos # (Auto) Baso # (Auto) Abs Immat Gran (auto) Absolute Neuts (auto) Absolute Nucleated RBC Nucleated RBC % (auto) Smear Tech's Comments PT INR APTT Hold Blue Top Sodium 140 Potassium 3.9 Chloride 103 Carbon Dioxide 28 Anion Gap 13 BUN 13 Creatinine 0.89 Estim Creat Clear Calc 103.5 Estimated GFR > 60 Random Glucose 112 Lactic Acid Calcium 8.1 L D Total Bilirubin AST ALT Alkaline Phosphatase Total Protein Albumin Urine Color Urine Appearance Urine pH Ur Specific [place] Urine Protein Urine Glucose (UA) Urine Ketones Urine Blood Urine Nitrite Ur Leukocyte Esterase Urine RBC Urine WBC Ur Squamous Epith Cells Urine Bacteria Granular Casts Urine Mucus Stool Occult Blood COVID-19 (DAX) COVID-19 Angstro Com Blood Type Antibody Screen Airway Mallampati Class: II TM Dist: >3cm Neck ROM: Full Loose/Missing/Broken Teeth: Yes (Many missing and broken) Heart: RRR Lungs: CTAB Assessment and Plan Assessment Anesthesia Assessment: Anesthesia Plan Discussed and Chart Reviewed Final Anesthetic Review NPO: Yes ASA Class: III and Emergency Final Preanesthetic Review: No Changes in Pt Med Stat, Meds/Allgs Chart Reviewed, Consent Obtained/Reviewed and Anes Risks/Benef Reviewed Patient Risk: Intermediate Procedure Risk: Low Assessment/Block/Sedation in SS: Assess/Block/Sedation-SS Anesthetic Plan Anesthetic Plan: MAC: Disposition: Standard PACU
--- NOTE | 2020-04-12 11:36 | PM.OP ---
Brief Operative Note Date of Service: 04/12/20 Pre-op diagnosis: colitis Post-op diagnosis: same (colon polyp) Procedure: colonoscopy Surgeon: Hugo Pearce Anesthesia: MAC Estimated blood loss (mL): 5 Pathology: other (polyp 50 cm, biopsies 35cm) Condition: stable Disposition: PACU
--- NOTE | 2020-04-12 11:41 | PM.EVENT ---
Event Note Date of Service: 04/12/20 Event Note: colonoscopy note dictated colitis from 30 to 55cm, c/w ischemic colitis, biopsied small polyp at 50 cm removed with biopsy forceps advance diet f/u biopsy results follow hct.
--- NOTE | 2020-04-12 12:05 | OP_ITS ---
SURGEON: Hugo Pearce MD INDICATIONS: Colitis and rectal bleeding. PREOPERATIVE DIAGNOSIS: POSTOPERATIVE DIAGNOSIS: PROCEDURE PERFORMED: Colonoscopy to the cecum with biopsy. ESTIMATED BLOOD LOSS: COMPLICATIONS: ANESTHESIA: ASSISTANTS: SPECIMENS: MEDICATIONS: Monitored anesthesia care. DESCRIPTION OF PROCEDURE: History and physical performed. The risks and benefits of the procedure were explained to the patient. Informed consent was obtained. The patient was placed in left lateral decubitus position. A digital rectal exam was performed and was found to be normal. The Olympus pediatric video colonoscope was introduced into the rectum and advanced to the cecum without difficulty. The cecum was identified by transillumination, palpation, and identification of ileocecal valve. Examination was performed and the scope was removed. He tolerated the procedure well and was taken to recovery area in stable condition. FINDINGS: The terminal ileum was not examined. The visualized colonic mucosa was normal except from 30 to 55 cm were colitis was present. The colitis showed erythema, edema, ulceration, and friability as well as loss of vascular pattern. This appeared consistent with ischemic colitis. Biopsies were obtained at 35 cm. There was a small less than 5 mm sessile polyp, which was removed with biopsy forceps at 50 cm, and several hyperplastic polyps were identified in the rectum, but not removed. Retroflexed examination showed small internal hemorrhoids. IMPRESSION: 1. Colitis, likely ischemic. 2. Colon polyp. RECOMMENDATIONS: Follow up the biopsy results. MD VIK Mathews/MIKAELA / [id number]
[2020-04-12] MEDS: Lactated Ringers 1,000 ML 100 ML IVCONT (13:05)
[2020-04-12] MEDS: levoFLOXacin/D5W 500 MG/100 ML PIGGYBACK 100 MG IV (14:10)
--- NOTE | 2020-04-12 14:58 | P.PNIM_ITS ---
Subjective Subjective Date of Service: 04/12/20 Interval History: Patient taking prep for colonoscopy, denies abdominal pain but noted blood in the toilet bowl, no nausea no vomiting is scheduled for colonoscopy. Review of Systems General no headache, no dizziness no fever chills. CVS no chest pain, no palpitation. Respiratory no cough, no shortness of breath Gastrointestinal no nausea, no vomiting, no abdominal pain Physical Exam Vital Signs: Vital Signs: Last Vital Signs Temp 98.3 F 04/12/20 11:40 Pulse 60 04/12/20 11:55 Resp 16 04/12/20 11:55 BP 107/71 04/12/20 11:55 Pulse Ox 98 04/12/20 11:55 Body Mass Index 32.5 General resting comfortably in no acute distress. Neck is supple no JVD. CVS regular rate rhythm, Respiratory lungs clear to auscultation, no respiratory distress, no wheeze, no rhonchi. Gastrointestinal abdomen soft, nontender, bowel sounds audible, no guarding , no rigidity. Extremities no clubbing, cyanosis or edema. Neuro nonfocal Skin no rash Objective Data Current Medications Generic Name Dose Route Start Last Admin Trade Name Freq PRN Reason Stop Dose Admin Acetaminophen 650 mg 04/11/20 10:19 Acetaminophen 325 Mg Tablet PO Q6H PRN Pain, Mild (Pain Scale 1-3) Amlodipine Besylate 5 mg 04/12/20 09:00 04/12/20 07:47 Amlodipine Besylate 5 Mg Tablet PO 5 mg DAILY GUSTABO Administration Protocol Atorvastatin Calcium 20 mg 04/12/20 09:00 04/12/20 07:46 Atorvastatin Calcium 20 Mg Tablet PO 20 mg DAILY GUSTABO Administration Finasteride 5 mg 04/12/20 09:00 04/12/20 07:47 Finasteride 5 Mg Tablet PO 5 mg DAILY GUSTABO Administration Furosemide 40 mg 04/12/20 09:00 04/12/20 07:46 Furosemide 40 Mg Tablet PO 40 mg DAILY GUSTABO Administration Protocol Levofloxacin 500 mg in 100 mls @ 100 mls/hr 04/11/20 12:00 04/12/20 14:10 Levaquin IV 100 mls/hr Q24H GUSTABO Administration Metronidazole 500 mg in 100 mls @ 100 mls/hr 04/11/20 12:00 04/12/20 14:02 Flagyl IV Infused Q8H GUSTABO Infusion Lactated Ringer's 1,000 mls @ 100 mls/hr 04/12/20 11:00 04/12/20 13:05 Lr IVCONT 100 mls/hr .Q10H GUSTABO Administration Lisinopril 40 mg 04/12/20 09:00 04/12/20 07:46 Lisinopril 40 Mg Tablet PO 40 mg DAILY GUSTABO Administration Protocol Metoprolol Tartrate 75 mg 04/11/20 21:00 04/12/20 07:46 Metoprolol Tartrate 50 Mg Tablet PO 75 mg BID GUSTABO Administration Protocol Ondansetron HCl 4 mg 04/11/20 10:19 Ondansetron Hcl 4 Mg/2 Ml Vial IVPUSH Q8H PRN Nausea and Vomiting Ondansetron HCl 4 mg 04/12/20 10:59 Ondansetron Hcl 4 Mg/2 Ml Vial IVPUSH ONCE PRN Nausea and Vomiting Pharmacy Consult 1 each 04/11/20 08:52 Consult Rx Perform Med Rec MISCELLANE ONCE PRN Consult order Sodium Chloride 3 ml 04/11/20 16:00 04/12/20 14:13 0.9 % Sodium Chloride Flush 3 Ml Syringe IVFLUSH 3 ml QSHIFT GUSTABO Administration Labs CBC & Chem 7: 04/12/20 06:04 04/12/20 06:04 Microbiology Microbiology Results: Microbiology 04/11/20 07:13 Blood - Venous Blood Culture - Preliminary No growth after 24 hours. 04/11/20 07:13 Blood - Venous Blood Culture - Preliminary No growth after 24 hours. Assessment and Plan (1) Colitis: Status: Acute (2) GI bleed: Status: Acute (3) CAD (coronary artery disease): Status: Acute (4) Hypertension: Status: Acute (5) Prostate cancer: Status: Acute Assessment and Plan: 64-year-old gentleman presented to [place] [facility] with crampy abdominal pain and rectal bleeding with no associated fever chills CT abdomen showed colitis involving the left colon and sigmoid colon. Acute colitis Patient abdominal pain resolved, he noted to have some bright red blood and tolerated bold patient underwent colonoscopy that showed finding suggestive of ischemic colitis, and a polyp was removed and sent for pathology will advance diet to regular, follow H&H and if he remains stable will discharge patient home for outpatient follow-up with Gastroenterology. Hypertension. Noted to have soft blood pressure this morning is on Lasix 40 mg, lisinopril 40 mg , metoprolol 75 mg b.i.d. and amlodipine 5 mg daily will give IV fluid follow blood pressure closely and adjust BP medication. Prostate cancer. Being followed with Dr. Marquez CAD. No chest discomfort, continue Statin and BB. DVT prophylaxis with mechanical compression boots due to GI bleed.
[2020-04-13] MEDS: 0.9 % Sodium Chloride Flush 3 ML SYRINGE IVFLUSH (00:17)
[2020-04-13] MEDS: metroNIDAZOLE/NS 500 MG/100 ML PIGGYBACK 100 MG IV (04:55)
[2020-04-13 06:42] LABS: MANUAL DIFF FLAG NO
[2020-04-13 06:48] LABS: Basophils Absolute Auto 0.1 X10*3/uL (0.0-0.2); Basophils Percent Auto 1.1 % (0-2); Eosinophils Absolute Auto 0.8 X10*3/uL (0.0-0.4); Eosinophils Percent Auto 6.4 % (0-4); Hematocrit 45.1 % (42-52); Hemoglobin 14.6 g/dl (14.0-18.0); Imm Gran Abs Auto 0.04 X10*3/uL (0.00-0.03); Imm Gran Pct Auto 0.3 % (0.0-0.4); Lymphocytes Absolute Auto 2.1 X10*3/uL (1.2-4.9); Lymphocytes Percent Auto 17.8 % (20-40); Mean Corpuscular HGB Conc 32.4 g/dl (31.0-36.0); Mean Corpuscular Volume 89.7 fL (80-98); Mean Platelet Volume 10.7 fL (9.4-12.4); Monocytes Absolute Auto 1.5 X10*3/uL (0.1-1.2); Monocytes Percent Auto 12.4 % (2-11); Neutrophils Absolute Auto 7.3 X10*3/uL (2.0-8.3); Platelet Count 187 X10*3/uL (160-400); Red Blood Count 5.03 X10*6/uL (4.60-5.80); Red Cell Distribution Width 13.1 % (11.0-16.0); White Blood Count 11.7 X10*3/uL (4.8-10.8)
[2020-04-13 07:41] VITALS: BP 118/67; PULSE 69; RESP 18; TEMP 37.1; O2SAT 95
[2020-04-13] MEDS: Finasteride 5 MG TABLET PO (07:57)
[2020-04-13] MEDS: Metoprolol Tartrate 50 MG TABLET 75 MG PO (07:57)
[2020-04-13] MEDS: Atorvastatin Calcium 20 MG TABLET PO (07:58)
[2020-04-13] MEDS: amLODIPine Besylate 5 MG TABLET PO (07:58)
[2020-04-13] MEDS: Lactated Ringers 1,000 ML 100 ML IVCONT (09:20)
[2020-04-13 10:59] VITALS: BP 119/62; PULSE 62; RESP 18; TEMP 36.5; O2SAT 93; O2SAT 95
--- NOTE | 2020-04-13 11:07 | PM.DS ---
DS: Providers Provider Date of Service: 04/13/20 Date of admission: 04/11/20 10:19 Primary care physician: Xavi Reeder [facility]- Consults: 04/11/20 10:19 Consult to Gastroenterology Routine Consulting Provider: Seamus Singh Reason for consultation: gi bleed Has provider been notified: No DS: Diagnosis Discharge Diagnosis (1) Colitis: Status: Acute (2) GI bleed: Status: Acute (3) CAD (coronary artery disease): Status: Acute (4) Hypertension: Status: Acute (5) Prostate cancer: Status: Acute DS: Medications Discharge Medications Home Medications: Home Medications Medication Instructions Recorded Confirmed atorvastatin 20 mg tablet 20 mg PO DAILY 02/26/20 04/11/20 furosemide 40 mg tablet 40 mg PO DAILY 02/26/20 04/11/20 Previous Rx's Medication Instructions Recorded lisinopril 40 mg tablet 40 mg PO DAILY 90 Days #90 tab 12/28/19 finasteride 5 mg tablet 5 mg PO DAILY 90 Days #90 tab 02/16/20 levofloxacin 500 mg PO DAILY 5 Days #5 tab 04/13/20 metoprolol tartrate 50 mg PO BID #180 cap 04/13/20 metronidazole [Flagyl] 500 mg PO BID #10 tab 04/13/20 DS: Summary Hospital Course Hospital Course: History of presenting illness Chief Complaint: Abdominal pain and bleeding 64 year old man presenting with abdominal cramping and red blood per rectum. He reported that its started suddenly yesterday with several episodes of diarrhea/loose stools. He denied nausea or vomiting. He takes a baby aspirin daily no other nsaids. Only rare alcohol use. His HH and blood pressure are stable, no further reported episodes of bleeding at the time of the interview. All labs within acceptable limits. Abd CT showed Colitis of the left colon and sigmoid colon without evidence of active GI bleeding, gallstones, Mild fatty infiltration of the liver. Past medical history CAD (coronary artery disease) Hypertension Prostate cancer Hospital course 64-year-old gentleman admitted due to crampy abdominal pain and rectal bleeding with no associated fever chills CT abdomen showed colitis involving the left colon and sigmoid colon Acute ischemic colitis. Patient was admitted to medical floor placed on IV fluids pain medications and IV antibiotic, CBC was monitored closely that remains stable patient was seen by Dr. Pearce and underwent colonoscopy that showed findings consistent with ischemic colitis patient diet has been advanced and he is tolerating regular diet with no worsening abdominal cramp no further bloody bowel movements patient is being discharged on 5 more days of antibiotics his hematocrit remains stable, In regard to chronic medical issues patient was noted to have soft blood pressure therefore Norvasc has been discontinued and patient has been recommended to resume Norvasc if noted to have up trending blood pressure otherwise he has been continued on all his home medications. Time Spent with Patient Time attestation: Total time spent providing and/or coordinating discharge services: Discharge coordination time: Greater than 30 minutes Physical Exam Vital Signs: Vital Signs: Last Vital Signs Temp 98.7 F 04/13/20 07:41 Pulse 69 04/13/20 07:41 Resp 18 04/13/20 07:41 BP 118/67 04/13/20 07:41 Pulse Ox 95 04/13/20 07:41 Body Mass Index 32.5 General resting comfortably in no acute distress. Neck is supple no JVD. CVS regular rate rhythm, Respiratory lungs clear to auscultation, no respiratory distress, no wheeze, no rhonchi. Gastrointestinal abdomen soft, nontender, bowel sounds audible, no guarding , no rigidity. Extremities no clubbing, cyanosis or edema. Neuro nonfocal Skin no rash DS: Data Data Completed and Pending Pending studies at discharge: Pending at discharge 04/12/20 11:32 Surgical [PTH] Routine Labs on day of discharge: Laboratory Tests 04/11/20 04/11/20 04/11/20 05:23 05:23 05:23 WBC Cancelled RBC Cancelled Hgb Cancelled Hct Cancelled MCV Cancelled MCH Cancelled MCHC Cancelled RDW Cancelled Plt Count Cancelled MPV Cancelled Immature Gran % (Auto) Cancelled Neut % (Auto) Cancelled Lymph % (Auto) Cancelled [place] % (Auto) Cancelled Eos % (Auto) Cancelled Baso % (Auto) Cancelled Lymph # (Auto) Cancelled [place] # (Auto) Cancelled Eos # (Auto) Cancelled Baso # (Auto) Cancelled Abs Immat Gran (auto) Cancelled Absolute Neuts (auto) Cancelled Absolute Nucleated RBC Cancelled Nucleated RBC % (auto) Cancelled Smear Tech's Comments PT 13.7 H INR 1.2 H APTT 35.8 Hold Blue Top SEE NOTE Sodium Cancelled Potassium Cancelled Chloride Cancelled Carbon Dioxide Cancelled Anion Gap Cancelled BUN Cancelled Creatinine Cancelled Estim Creat Clear Calc Cancelled Estimated GFR Cancelled Random Glucose Cancelled Lactic Acid Calcium Cancelled Total Bilirubin Cancelled AST Cancelled ALT Cancelled Alkaline Phosphatase Cancelled Total Protein Cancelled Albumin Cancelled Urine Color Urine Appearance Urine pH Ur Specific [place] Urine Protein Urine Glucose (UA) Urine Ketones Urine Blood Urine Nitrite Ur Leukocyte Esterase Urine RBC Urine WBC Ur Squamous Epith Cells Urine Bacteria Granular Casts Urine Mucus Stool Occult Blood COVID-19 (DAX) COVID-19 Clin Com Blood Type Antibody Screen 04/11/20 04/11/20 04/11/20 05:23 06:09 06:09 WBC 15.5 H RBC 5.18 Hgb 15.1 Hct 46.3 MCV 89.4 MCH 29.2 MCHC 32.6 RDW 12.8 Plt Count 197 MPV 10.4 Immature Gran % (Auto) 0.3 Neut % (Auto) 75.2 H Lymph % (Auto) 12.4 L [place] % (Auto) 11.3 H Eos % (Auto) 0.3 Baso % (Auto) 0.5 Lymph # (Auto) 1.9 [place] # (Auto) 1.8 H Eos # (Auto) 0.1 Baso # (Auto) 0.1 Abs Immat Gran (auto) 0.05 H Absolute Neuts (auto) 11.7 H Absolute Nucleated RBC 0.000 Nucleated RBC % (auto) 0.0 Smear Tech's Comments VERIFIED PT INR APTT Hold Blue Top Sodium 139 Potassium 4.8 Chloride 103 Carbon Dioxide 31 H Anion Gap 10 L BUN 22 H Creatinine 1.04 Estim Creat Clear Calc 90.2 Estimated GFR > 60 Random Glucose 130 H Lactic Acid Calcium 8.9 Total Bilirubin 1.0 AST 18 ALT 27 Alkaline Phosphatase 81 Total Protein 6.9 Albumin 4.0 Urine Color PRINCESS Urine Appearance CLEAR Urine pH 6.0 Ur Specific [place] >= 1.030 H Urine Protein NEG Urine Glucose (UA) NEG Urine Ketones 5 Urine Blood TRACE Urine Nitrite NEG Ur Leukocyte Esterase NEG Urine RBC 0-2 Urine WBC 0-2 Ur Squamous Epith Cells 1+ Urine Bacteria NONE Granular Casts 0-2 Urine Mucus 4+ Stool Occult Blood COVID-19 (DAX) COVID-19 Clin Com Blood Type Antibody Screen 04/11/20 04/11/20 04/11/20 06:19 07:13 07:13 WBC RBC Hgb Hct MCV MCH MCHC RDW Plt Count MPV Immature Gran % (Auto) Neut % (Auto) Lymph % (Auto) [place] % (Auto) Eos % (Auto) Baso % (Auto) Lymph # (Auto) [place] # (Auto) Eos # (Auto) Baso # (Auto) Abs Immat Gran (auto) Absolute Neuts (auto) Absolute Nucleated RBC Nucleated RBC % (auto) Smear Tech's Comments PT INR APTT Hold Blue Top Sodium Potassium Chloride Carbon Dioxide Anion Gap BUN Creatinine Estim Creat Clear Calc Estimated GFR Random Glucose Lactic Acid 1.3 Calcium Total Bilirubin AST ALT Alkaline Phosphatase Total Protein Albumin Urine Color Urine Appearance Urine pH Ur Specific [place] Urine Protein Urine Glucose (UA) Urine Ketones Urine Blood Urine Nitrite Ur Leukocyte Esterase Urine RBC Urine WBC Ur Squamous Epith Cells Urine Bacteria Granular Casts Urine Mucus Stool Occult Blood POS COVID-19 (DAX) COVID-19 Clin Com Blood Type O Positive Antibody Screen NEGATIVE 04/11/20 04/11/20 04/12/20 09:03 12:06 06:04 WBC 13.5 H RBC 5.03 Hgb 14.7 14.5 Hct 44.7 45.2 MCV 89.9 MCH 28.8 MCHC 32.1 RDW 13.2 Plt Count 186 MPV 10.6 Immature Gran % (Auto) 0.4 Neut % (Auto) 68.9 Lymph % (Auto) 15.7 L [place] % (Auto) 13.7 H Eos % (Auto) 0.7 Baso % (Auto) 0.6 Lymph # (Auto) 2.1 [place] # (Auto) 1.9 H Eos # (Auto) 0.1 Baso # (Auto) 0.1 Abs Immat Gran (auto) 0.05 H Absolute Neuts (auto) 9.3 H Absolute Nucleated RBC 0.000 Nucleated RBC % (auto) 0.0 Smear Tech's Comments VERIFIED PT INR APTT Hold Blue Top Sodium Potassium Chloride Carbon Dioxide Anion Gap BUN Creatinine Estim Creat Clear Calc Estimated GFR Random Glucose Lactic Acid Calcium Total Bilirubin AST ALT Alkaline Phosphatase Total Protein Albumin Urine Color Urine Appearance Urine pH Ur Specific [place] Urine Protein Urine Glucose (UA) Urine Ketones Urine Blood Urine Nitrite Ur Leukocyte Esterase Urine RBC Urine WBC Ur Squamous Epith Cells Urine Bacteria Granular Casts Urine Mucus Stool Occult Blood COVID-19 (DAX) Negative COVID-19 Clin Com See Note Blood Type Antibody Screen 04/12/20 04/13/20 06:04 06:09 WBC 11.7 H RBC 5.03 Hgb 14.6 Hct 45.1 MCV 89.7 MCH 29.0 MCHC 32.4 RDW 13.1 Plt Count 187 MPV 10.7 Immature Gran % (Auto) 0.3 Neut % (Auto) 62.0 Lymph % (Auto) 17.8 L [place] % (Auto) 12.4 H Eos % (Auto) 6.4 H Baso % (Auto) 1.1 Lymph # (Auto) 2.1 [place] # (Auto) 1.5 H Eos # (Auto) 0.8 H Baso # (Auto) 0.1 Abs Immat Gran (auto) 0.04 H Absolute Neuts (auto) 7.3 Absolute Nucleated RBC 0.000 Nucleated RBC % (auto) 0.0 Smear Tech's Comments PT INR APTT Hold Blue Top Sodium 140 Potassium 3.9 Chloride 103 Carbon Dioxide 28 Anion Gap 13 BUN 13 Creatinine 0.89 Estim Creat Clear Calc 103.5 Estimated GFR > 60 Random Glucose 112 Lactic Acid Calcium 8.1 L D Total Bilirubin AST ALT Alkaline Phosphatase Total Protein Albumin Urine Color Urine Appearance Urine pH Ur Specific [place] Urine Protein Urine Glucose (UA) Urine Ketones Urine Blood Urine Nitrite Ur Leukocyte Esterase Urine RBC Urine WBC Ur Squamous Epith Cells Urine Bacteria Granular Casts Urine Mucus Stool Occult Blood COVID-19 (DAX) COVID-19 Clin Com Blood Type Antibody Screen Preliminary micro results at discharge 04/11/20 07:13 Blood Culture - Preliminary Blood - Venous No growth after 48 hours. 04/11/20 07:13 Blood Culture - Preliminary Blood - Venous No growth after 48 hours. Discharge Plan Discharge Patient Disposition: Home, Self-Care Referrals: Xavi Reeder FNP-BC [Primary Care Provider] - Discharge Medications: New levofloxacin 500 mg tablet 500 mg PO DAILY 5 Days Qty: 5 RF: 0 metronidazole [Flagyl] 500 mg tablet 500 mg PO BID Qty: 10 RF: 0 Continued lisinopril 40 mg tablet 40 mg PO DAILY 90 Days Qty: 90 RF: 1 finasteride 5 mg tablet 5 mg PO DAILY 90 Days Qty: 90 RF: 2 furosemide 40 mg tablet 40 mg PO DAILY RF: 0 atorvastatin 20 mg tablet 20 mg PO DAILY RF: 0 Changed metoprolol tartrate 50 mg tablet 50 mg PO BID Qty: 180 RF: 4 Discontinued amlodipine 5 mg tablet 5 mg PO DAILY Qty: 30 RF: 1 Discharge Orders: Discharge Order (Routine); Ordered 04/13/20 Ordered By: Apple Arizmendi Diet: low fat, low cholesterol Activity on Discharge: As tolerated Stand Alone Forms: Patient Portal Discharge page Visit Report Forms: Patient Portal Discharge page Care Plan Goals: Take bland diet like pudding, yogurt, banana, Jell-O for next couple days, hold Norvasc for tomorrow due to soft blood pressure and if noted to have elevated blood pressure resume Norvasc 5 mg as before Health Concerns: Ischemic colitis Plan of Treatment: Outpatient follow-up with primary care physician
--- NOTE | 2020-04-13 13:35 | HO.POSTANES ---
Post Anesthesia Evaluation Post Anesthesia Evaluation Vital Signs: Vital Signs Temp Pulse Resp BP Pulse Ox 04/13/20 10:59 97.7 F 62 18 119/62 93 04/13/20 07:41 98.7 F 69 18 118/67 95 Anesthesia: Monitored Mental Status: Awake Pain Control: Satisfactory Nausea/Vomiting: None Hydration: Adequate Anesthesia-Related Issues: No Anes. Related Issues
== END 2020-04-13 13:10 | disposition home or self-care (01) | DRG 246 ==
LOC: HO.ED 07:51 → HO.EDOVER 10:41 → HO.S3 18:42
PROVIDERS: Internal Medicine Gastroenterology; Nurse Practitioner Acute Care; Physician Assistant; Admitting Provider Hospitalist; Emergency Provider Student in an Organized Health Care Education/Training Program; PCP Nurse Practitioner Family; Visit Provider Hospitalist
PROC: 0DJD8ZZ Inspection of Lower Intestinal Tract, Via Natural or Artificial Opening Endoscopic (ICD-10-PCS; CPT 45378; principal; 2020-04-12 11:20)
DX: K55.9 Vascular disorder of intestine, unspecified (principal); C61 Malignant neoplasm of prostate; I10 Essential (primary) hypertension; K52.9 Noninfective gastroenteritis and colitis, unspecified; I25.10 Atherosclerotic heart disease of native coronary artery without angina pectoris; Z20.822 Contact with and (suspected) exposure to COVID-19; Z95.1 Presence of aortocoronary bypass graft; Z79.899 Other long term (current) drug therapy
CPT/HCPCS: 36415; 74178; 80048; 80053; 81001; 82272; 83605; 85014; 85018; 85025; 85610; 85730; 86850; 86900; 86901; 87040; 87635; 88305; 96365; 99285; J1956; J2543; Q9967

== ENCOUNTER 2020-08-19 06:17 | Outpatient (REF) | payer OTHER, SELFPAY ==
[2020-08-19 07:39] LABS: MANUAL DIFF FLAG NO
[2020-08-19 07:43] LABS: Basophils Absolute Auto 0.1 X10*3/uL (0.0-0.2); Basophils Percent Auto 1.2 % (0-2); Eosinophils Absolute Auto 0.3 X10*3/uL (0.0-0.4); Eosinophils Percent Auto 3.6 % (0-4); Hematocrit 49.1 % (42-52); Hemoglobin 15.9 g/dl (14.0-18.0); Imm Gran Abs Auto 0.03 X10*3/uL (0.00-0.03); Imm Gran Pct Auto 0.3 % (0.0-0.4); Lymphocytes Absolute Auto 2.3 X10*3/uL (1.2-4.9); Lymphocytes Percent Auto 25.3 % (20-40); Mean Corpuscular HGB Conc 32.4 g/dl (31.0-36.0); Mean Corpuscular Hemoglobin 28.9 pg (27.0-33.0); Mean Corpuscular Volume 89.3 fL (80-98); Mean Platelet Volume 10.8 fL (9.4-12.4); Monocytes Absolute Auto 1.3 X10*3/uL (0.1-1.2); Monocytes Percent Auto 13.9 % (2-11); Neutrophils Absolute Auto 5.1 X10*3/uL (2.0-8.3); Neutrophils Percent Auto 55.7 % (45-73); Platelet Count 224 X10*3/uL (160-400); Red Cell Distribution Width 13.3 % (11.0-16.0); White Blood Count 9.1 X10*3/uL (4.8-10.8)
[2020-08-19 08:08] LABS: Alanine Aminotransferase 27 U/L (0-40); Albumin Level 4.1 g/dL (3.5-5.0); Alkaline Phosphatase 77 U/L (39-117); Anion Gap 13 (12-20); Aspartate Amino Transferase 22 U/L (5-37); Bilirubin Total 1.2 mg/dL (0.0-1.0); Blood Urea Nitrogen 17 mg/dL (9-16); Calcium 8.7 mg/dL (8.4-10.2); Carbon Dioxide 29 mmol/L (22-29); Chloride 101 mmol/L (96-108); Cholesterol 113 mg/dL; Estimated Glomerular Filt Rate > 60; Glucose Fasting 109 mg/dL (60-99); HDL Cholesterol 30 mg/dL; LDL Cholesterol Calculated 63 mg/dl; Potassium 5.1 mmol/L (3.3-5.1); Sodium 138 mmol/L (135-145); Triglycerides 102 mg/dL
[2020-08-19 08:27] LABS: TSH reflex Free T4 1.05 uIU/mL (0.32-4.0)
== END 2020-08-19 06:18 | disposition home or self-care (01) ==
LOC: HO.LAB 06:17
PROVIDERS: Absent Provider Urology; PCP Nurse Practitioner Family; Visit Provider Nurse Practitioner Family
DX: I10 Essential (primary) hypertension (principal); K52.9 Noninfective gastroenteritis and colitis, unspecified; C61 Malignant neoplasm of prostate
CPT/HCPCS: 36415; 80053; 80061; 84443; 85025

== ENCOUNTER 2020-09-29 04:26 | Emergency (ER) | payer OTHER, MEDICARE, SELFPAY ==
--- NOTE | ~2020-09-29 | CT_ITS ---
EXAMINATION: CT HEAD WITHOUT CONTRAST (STROKE PROTOCOL) INDICATION INFORMATION: Stroke protocol, left hemiparesis COMPARISON: None TECHNIQUE: Noncontrast CT of the head was performed. DLP: 829 mGy-cm DOSE LOWERING TECHNIQUES: This CT examination was performed using dose optimization techniques as appropriate, variously including the following: - Automated exposure control - Adjustment of mA and/or kV according to patient size (this includes techniques or standardized protocols for targeted exams were dose is matched to indication/reason for exam; i.e. extremities or head) - Use of iterative reconstruction technique FINDINGS: There is loss of eisenberg-white differentiation within a moderate region of the right MCA territory including the insular ribbon and frontoparietal cortex, in keeping with acute infarct. There is a suspected hyperdense right MCA sign. No acute intracranial hemorrhage is seen. No abnormal mass-effect or midline shift is seen. No extra-axial fluid collections are identified. The ventricles are normal in size. There is no abnormal attenuation within the brain parenchyma. No acute fracture is seen. There is mild posterior scalp soft tissue swelling. The mastoid air cells and visualized portions of the paranasal sinuses are well-aerated. CT/CT head for stroke IMPRESSION: Acute infarct of the right MCA territory. No acute intracranial hemorrhage identified. Suspect associated right MCA thrombus, which will be better assessed on upcoming CTA. This critical result was discussed with Dr. Hall on 09/29/2020 4:46 AM, and it was ascertained that the content and urgency of the report was understood at the time of direct communication.
--- NOTE | ~2020-09-29 | CT_ITS ---
EXAMINATION: CTA NECK WITH CONTRAST (STROKE) CTA BRAIN WITH CONTRAST (STROKE) CLINICAL INFORMATION: Acute CVA COMPARISON: Noncontrast head CT from earlier today TECHNIQUE: Test bolus sequences followed by intravenous administration 70 mL of Omnipaque 350. Helical imaging was performed in the axial plane from the thoracic inlet to the skull vertex. Delayed postcontrast imaging of the head was also performed. The data was processed at the fiber technologist's workstation for generation of MIP sequences. Angled MIPs and volume rendered reformatted images were also generated at an offline 3D workstation. Stenoses are assessed in accordance with NASCET criteria unless otherwise indicated. DOSE LOWERING TECHNIQUES: This CT examination was performed using dose optimization techniques as appropriate, variously including the following: - Automated exposure control - Adjustment of mA and/or kV according to patient size (this includes techniques or standardized protocols for targeted exams were dose is matched to indication/reason for exam; i.e. extremities or head) - Use of iterative reconstruction technique DLP: 1743 mGy-cm FINDINGS: Neck CTA: There is scattered aortic calcification. There is common origin of the brachiocephalic and left common carotid arteries off the aortic arch. No significant stenosis at the branch origins. There are calcifications of the bilateral common carotid artery bifurcations, left greater than right, without significant stenosis. Otherwise normal appearance of the common and internal carotid arteries without significant stenosis. Both vertebral arteries are widely patent throughout their extracranial cervical course. Brain CTA: There is abrupt cutoff of opacification in the M1 segment of the right middle cerebral artery, approximately 5 mm beyond its origin, consistent with probable cyst. There is significantly reduced opacification of the right M2 and more distal right MCA branches. The left middle cerebral artery complex demonstrates normal opacification. Normal appearance of the intradural vertebral arteries. Normal appearance of the basilar and superior cerebellar arteries. Normally opacified posterior cerebral arteries bilaterally. CT Head: Redemonstrated loss of eisenberg-white differentiation in the region of the right MCA territory including the insula and frontal cortex, in keeping with acute infarct. No acute hemorrhage is seen. No significant mass effect, or midline shift. There is mild periventricular white matter hypoattenuation consistent with chronic small vessel ischemic disease. No hydrocephalus. The mastoid air cells and paranasal sinuses remain well aerated. CT Neck: The thyroid gland and remaining cervical soft tissues are normal in appearance. There is disc space narrowing and endplate osteophyte formation in the lower cervical spine. Upper Chest: No acute abnormalities in the visualized lung apices or upper mediastinum. Coronary artery calcifications are noted. CT/CT angio head neck stroke IMPRESSION: Right MCA thrombus beginning in the M1 segment, with significantly reduced opacification of distal MCA branches. Appearance corresponds to the parenchymal findings of acute right MCA territory infarct on head CT. This critical result was discussed with Dr. Hall on 09/29/2020 4:56 AM, and it was ascertained that the content and urgency of the report was understood at the time of direct communication.
[2020-09-29 04:28] VITALS: BMI 31.8
--- NOTE | 2020-09-29 04:28 | ECG_ITS ---
Test Reason : STROKE Blood Pressure : / mmHG Vent. Rate : 118 BPM Atrial Rate : 150 BPM P-R Int : 000 ms QRS Dur : 082 ms QT Int : 356 ms P-R-T Axes : 000 059 100 degrees QTc Int : 498 ms Atrial fibrillation with rapid ventricular response Nonspecific ST abnormality Abnormal ECG When compared with ECG of 29-JUN-2002 06:56, Atrial fibrillation has replaced Sinus rhythm Vent. rate has increased BY 59 BPM T wave inversion no longer evident in Anterior leads Referred By: Shamar Hall Electronically Signed By:MAME SANCHEZ MD
[2020-09-29 04:29] VITALS: BMI 29.8
--- NOTE | 2020-09-29 04:35 | ED.NEUROSD ---
HPI - Neuro Symptoms/Deficit General Chief Complaint: Stroke Stated Complaint: General Medical Time Seen by Provider: 09/29/20 04:27 Source: EMS Mode of arrival: EMS History of Present Illness HPI Narrative: Patient has history of hypertension coronary artery disease was in usual health went to sleep at 20:00 . at 04:00 woke up and noticed patient was half in the bed and half on the floor with left-sided weakness and dysarthria , patient was confused with garbled speech with gaze to the right no seizure activity no vomiting when patient went to bed patient was healthy Related Data Home Medications Medication Instructions Recorded Confirmed amlodipine 5 mg tablet 5 mg PO DAILY 02/26/20 atorvastatin 20 mg tablet 20 mg PO DAILY 02/26/20 finasteride 5 mg tablet 5 mg PO DAILY 02/26/20 furosemide 40 mg tablet 20 mg PO Q OTHER DAY 02/26/20 lisinopril 40 mg tablet 40 mg PO DAILY 02/26/20 metoprolol tartrate 50 mg tablet mg PO 02/26/20 Previous Rx's Medication Instructions Recorded finasteride 5 mg tablet 5 mg PO DAILY 90 Days #90 tab 02/16/20 levofloxacin 500 mg PO DAILY 5 Days #5 tab 04/13/20 metronidazole [Flagyl] 500 mg PO BID #10 tab 04/13/20 atorvastatin 20 mg tablet 20 mg PO DAILY #90 cap 05/04/20 lisinopril 40 mg tablet 40 mg PO DAILY #90 cap 06/07/20 furosemide 40 mg tablet 20 mg PO Q OTHER DAY #45 cap 06/30/20 metoprolol tartrate 50 mg tablet 75 mg PO BID 90 Days #270 cap 09/05/20 Allergies Allergy/AdvReac Type Severity Reaction Status Date / Time No Known Allergies Allergy Mild NOT Verified 07/20/20 15:12 [No Known Allergies*] APPLICABLE Review of Systems Review of Systems: Constitutional : No Weight loss, No Fever, No Chills ENT/Mouth : No sore throat, No Rhinorrhea Eyes: No Eye Pain, No Swelling Cardiovascular : No Chest Pain, no palpitations Respiratory : No Cough, No Sputum, no shortness of breath Gastrointestinal : no Nausea, No Vomiting, No Diarrhea, No abdominal Pain, no black stools Genitourinary : No Dysuria, No Urinary Frequency Musculoskeletal : No joint pain, No Myalgias, No Joint Swelling Skin : No Skin Lesions, No rash Neuro : No Headache Psych : No Anxiety/Panic, No Depression Heme/Lymph: No Bruising, No Lymphadenopathy Endocrine : No Polyuria, No Polydipsia All other systems reviewed and are negative [facility] Past Medical History Medical History CAD (coronary artery disease) Hypertension Prostate cancer Surgical History S/P CABG x 4 Family History Family History Father CAD (coronary artery disease) Mother Breast cancer Brother CAD (coronary artery disease) Social History Social History Alcohol intake: current Alcohol intake frequency: a few times a month Advance Directives: No Advance Directives Information Provided: No service: No Current occupational status: employed Physical Exam Vital Signs: Vital Signs: Last Vital Signs Temp 98.0 F 09/29/20 05:02 Pulse 130 H 09/29/20 05:02 Resp 14 09/29/20 05:02 BP 140/90 H 09/29/20 05:02 Pulse Ox 94 09/29/20 05:02 Body Mass Index 29.8 Const: General: no acute distress and well developed Orientation/consciousness: oriented to person HENMT: Head: Yes normocephalic and Yes atraumatic Ears: hearing grossly normal bilaterally General nose exam: Normal external nose present Eyes: General: appearance normal, both eyes and all related structures Pupils: Equal, round and reactive pupils present Neck: Neck: Yes normal visual inspection and Yes full ROM Resp: Effort & Inspection: normal respiratory effort Auscultation: clear to auscultation bilaterally, no crackles, no rales and no rhonchi Cardio: Jugular venous distension: no JVD Palpation: normal PMI Rate: regular rate Rhythm: regular rhythm Heart sounds: S1 normal heart sound present and S2 normal heart sound present Peripheral pulses: Peripheral pulses 2+ throughout GI: Inspection: Yes normal to inspection Palpation (GI): Soft to palpation Neuro: Other: Dense left hemiparesis with flaccid left upper extremity and lower extremity dysarthria+ left facial droop++ General: oriented to person Cranial nerves: Yes Equal, round and reactive pupils present MDM - Neuro Symptoms/Deficit MDM Narrative Medical decision making narrative: Patient with acute CVA with thrombus in left MCA M1 proximal segment EKG showed atrial fibrillation which is new. Time of onset is not very clear patient went to sleep at 20:00. Will transfer patient to [facility] for thrombectomy patient not a case for tPA Case with Dr. bain neurointerventional at [facility] would like the patient to go to ER for CT perfusion study patient accepted by Dr. Rutledge in ED patient was given aspirin per rectum Lab Data Attestation: I reviewed the patient's lab results. Result diagrams: 09/29/20 04:54 09/29/20 04:54 Labs: Lab Results 09/29/20 09/29/20 09/29/20 Range/Units 04:35 04:36 04:54 WBC 10.9 H (4.8-10.8) X10*3/uL RBC 5.05 (4.60-5.80) X10*6/uL Hgb 14.6 (14.0-18.0) g/dl Hct 44.6 (42-52) % MCV 88.3 (80-98) fL MCH 28.9 (27.0-33.0) pg MCHC 32.7 (31.0-36.0) g/dl RDW 13.1 (11.0-16.0) % Plt Count 165 D (160-400) X10*3/uL MPV 10.0 (9.4-12.4) fL Immature Gran % (Auto) 0.3 (0.0-0.4) % Neut % (Auto) 77.5 H (45-73) % Lymph % (Auto) 13.4 L (20-40) % Mitchell % (Auto) 7.5 (2-11) % Eos % (Auto) 0.4 (0-4) % Baso % (Auto) 0.9 (0-2) % Lymph # (Auto) 1.5 (1.2-4.9) X10*3/uL Mitchell # (Auto) 0.8 (0.1-1.2) X10*3/uL Eos # (Auto) 0.0 (0.0-0.4) X10*3/uL Baso # (Auto) 0.1 (0.0-0.2) X10*3/uL Abs Immat Gran (auto) 0.03 (0.00-0.03) X10*3/uL Absolute Neuts (auto) 8.4 H (2.0-8.3) X10*3/uL Absolute Nucleated RBC 0.000 (0.0-0.012) X10*3/uL Nucleated RBC % (auto) 0.0 (0.0-0.2) /100WBC PT (9.9-13.0) SEC Whole Blood PT 14.3 H (11.1-13.5) sec INR (0.9-1.1) Whole Blood INR 1.2 H (0.9-1.1) Sodium (135-145) mmol/L Potassium (3.3-5.1) mmol/L Chloride (96-108) mmol/L Carbon Dioxide (22-29) mmol/L Anion Gap (12-20) BUN (9-16) mg/dL Creatinine (0.5-1.4) mg/dL Estim Creat Clear Calc Estimated GFR POC Glucose 160 H (60-115) mg/dL Random Glucose (60-115) mg/dL Calcium (8.4-10.2) mg/dL Troponin I High Sens (<3.5-35.0) ng/L Hold Red Top Urine Color Urine Appearance Urine pH (5.0-8.0) Ur Specific [place] (1.005-1.025) Urine Protein (NEG-TRACE) MG/DL Urine Glucose (UA) (NEG) MG/DL Urine Ketones (NEG) MG/DL Urine Blood (NEG) Urine Nitrite (NEG) Ur Leukocyte Esterase (NEG) Urine RBC (0) /HPF Urine WBC (0-4) /HPF Ur Squamous Epith Cells /LPF Urine Bacteria /LPF COVID-19 (ADX) (Negative) COVID-19 Clin Com 09/29/20 09/29/20 09/29/20 Range/Units 04:54 04:54 04:54 WBC (4.8-10.8) X10*3/uL RBC (4.60-5.80) X10*6/uL Hgb (14.0-18.0) g/dl Hct (42-52) % MCV (80-98) fL MCH (27.0-33.0) pg MCHC (31.0-36.0) g/dl RDW (11.0-16.0) % Plt Count (160-400) X10*3/uL MPV (9.4-12.4) fL Immature Gran % (Auto) (0.0-0.4) % Neut % (Auto) (45-73) % Lymph % (Auto) (20-40) % Mitchell % (Auto) (2-11) % Eos % (Auto) (0-4) % Baso % (Auto) (0-2) % Lymph # (Auto) (1.2-4.9) X10*3/uL Mitchell # (Auto) (0.1-1.2) X10*3/uL Eos # (Auto) (0.0-0.4) X10*3/uL Baso # (Auto) (0.0-0.2) X10*3/uL Abs Immat Gran (auto) (0.00-0.03) X10*3/uL Absolute Neuts (auto) (2.0-8.3) X10*3/uL Absolute Nucleated RBC (0.0-0.012) X10*3/uL Nucleated RBC % (auto) (0.0-0.2) /100WBC PT 14.6 H (9.9-13.0) SEC Whole Blood PT (11.1-13.5) sec INR 1.3 H (0.9-1.1) Whole Blood INR (0.9-1.1) Sodium 136 (135-145) mmol/L Potassium 4.2 (3.3-5.1) mmol/L Chloride 101 (96-108) mmol/L Carbon Dioxide 24 (22-29) mmol/L Anion Gap 15 (12-20) BUN 13 (9-16) mg/dL Creatinine 0.83 (0.5-1.4) mg/dL Estim Creat Clear Calc 107.0 Estimated GFR > 60 POC Glucose (60-115) mg/dL Random Glucose 168 H D (60-115) mg/dL Calcium 8.6 (8.4-10.2) mg/dL Troponin I High Sens 4.0 (<3.5-35.0) ng/L Hold Red Top Urine Color Urine Appearance Urine pH (5.0-8.0) Ur Specific [place] (1.005-1.025) Urine Protein (NEG-TRACE) MG/DL Urine Glucose (UA) (NEG) MG/DL Urine Ketones (NEG) MG/DL Urine Blood (NEG) Urine Nitrite (NEG) Ur Leukocyte Esterase (NEG) Urine RBC (0) /HPF Urine WBC (0-4) /HPF Ur Squamous Epith Cells /LPF Urine Bacteria /LPF COVID-19 (DAX) (Negative) COVID-19 Clin Com 09/29/20 09/29/20 09/29/20 Range/Units 04:54 04:55 05:15 WBC (4.8-10.8) X10*3/uL RBC (4.60-5.80) X10*6/uL Hgb (14.0-18.0) g/dl Hct (42-52) % MCV (80-98) fL MCH (27.0-33.0) pg MCHC (31.0-36.0) g/dl RDW (11.0-16.0) % Plt Count (160-400) X10*3/uL MPV (9.4-12.4) fL Immature Gran % (Auto) (0.0-0.4) % Neut % (Auto) (45-73) % Lymph % (Auto) (20-40) % Mitchell % (Auto) (2-11) % Eos % (Auto) (0-4) % Baso % (Auto) (0-2) % Lymph # (Auto) (1.2-4.9) X10*3/uL Mitchell # (Auto) (0.1-1.2) X10*3/uL Eos # (Auto) (0.0-0.4) X10*3/uL Baso # (Auto) (0.0-0.2) X10*3/uL Abs Immat Gran (auto) (0.00-0.03) X10*3/uL Absolute Neuts (auto) (2.0-8.3) X10*3/uL Absolute Nucleated RBC (0.0-0.012) X10*3/uL Nucleated RBC % (auto) (0.0-0.2) /100WBC PT (9.9-13.0) SEC Whole Blood PT (11.1-13.5) sec INR (0.9-1.1) Whole Blood INR (0.9-1.1) Sodium (135-145) mmol/L Potassium (3.3-5.1) mmol/L Chloride (96-108) mmol/L Carbon Dioxide (22-29) mmol/L Anion Gap (12-20) BUN (9-16) mg/dL Creatinine (0.5-1.4) mg/dL Estim Creat Clear Calc Estimated GFR POC Glucose (60-115) mg/dL Random Glucose (60-115) mg/dL Calcium (8.4-10.2) mg/dL Troponin I High Sens (<3.5-35.0) ng/L Hold Red Top See Note Urine Color YELLOW Urine Appearance CLEAR Urine pH 6.5 (5.0-8.0) Ur Specific [place] 1.010 (1.005-1.025) Urine Protein TRACE (NEG-TRACE) MG/DL Urine Glucose (UA) NEG (NEG) MG/DL Urine Ketones NEG (NEG) MG/DL Urine Blood TRACE (NEG) Urine Nitrite NEG (NEG) Ur Leukocyte Esterase NEG (NEG) Urine RBC 0-2 (0) /HPF Urine WBC 0-2 (0-4) /HPF Ur Squamous Epith Cells TRACE /LPF Urine Bacteria NONE /LPF COVID-19 (DAX) Negative (Negative) COVID-19 Clin Com See Note Imaging Data CT scan - head: Attestation: I personally reviewed and interpreted this imaging study as follows: Radiologist's impression: [address] [id number] Scan ReportSigned Patient: Davis Arango MMR#: [id number]: 5Acct:[id number]/Sex: 65 / MADM Date: 09/29/20Loc: [address] Dr: Ordering Physician: Shamar Hall MD Date of Service: 09/29/20 Procedure(s): CT angio head neck stroke Accession Number(s): [id number] cc: Shamar Hall MD~ EXAMINATION: CTA NECK WITH CONTRAST (STROKE) CTA BRAIN WITH CONTRAST (STROKE) CLINICAL INFORMATION: Acute CVA COMPARISON: Noncontrast head CT from earlier today TECHNIQUE: Test bolus sequences followed by intravenous administration 70 mL of Omnipaque 350. Helical imaging was performed in the axial plane from the thoracic inlet to the skull vertex. Delayed postcontrast imaging of the head was also performed. The data was processed at the radiographer technologist's workstation for generation of MIP sequences. Angled MIPs and volume rendered reformatted images were also generated at an offline 3D workstation. Stenoses are assessed in accordance with NASCET criteria unless otherwise indicated. DOSE LOWERING TECHNIQUES: This CT examination was performed using dose optimization techniques as appropriate, variously including the following: - Automated exposure control - Adjustment of mA and/or kV according to patient size (this includes techniques or standardized protocols for targeted exams were dose is matched to indication/reason for exam; i.e. extremities or head) - Use of iterative reconstruction technique DLP: 1743 mGy-cm FINDINGS: Neck CTA: There is scattered aortic calcification. There is common origin of the brachiocephalic and left common carotid arteries off the aortic arch. No significant stenosis at the branch origins. There are calcifications of the bilateral common carotid artery bifurcations, left greater than right, without significant stenosis. Otherwise normal appearance of the common and internal carotid arteries without significant stenosis. Both vertebral arteries are widely patent throughout their extracranial cervical course. Brain CTA: There is abrupt cutoff of opacification in the M1 segment of the right middle cerebral artery, approximately 5 mm beyond its origin, consistent with probable cyst. There is significantly reduced opacification of the right M2 and more distal right MCA branches. The left middle cerebral artery complex demonstrates normal opacification. Normal appearance of the intradural vertebral arteries. Normal appearance of the basilar and superior cerebellar arteries. Normally opacified posterior cerebral arteries bilaterally. CT Head: Redemonstrated loss of eisenberg-white differentiation in the region of the right MCA territory including the insula and frontal cortex, in keeping with acute infarct. No acute hemorrhage is seen. No significant mass effect, or midline shift. There is mild periventricular white matter hypoattenuation consistent with chronic small vessel ischemic disease. No hydrocephalus. The mastoid air cells and paranasal sinuses remain well aerated. CT Neck: The thyroid gland and remaining cervical soft tissues are normal in appearance. There is disc space narrowing and endplate osteophyte formation in the lower cervical spine. Upper Chest: No acute abnormalities in the visualized lung apices or upper mediastinum. Coronary artery calcifications are noted. CT/CT angio head neck stroke IMPRESSION: Right MCA thrombus beginning in the M1 segment, with significantly reduced opacification of distal MCA branches. Appearance corresponds to the parenchymal findings of acute right MCA territory infarct on head CT. This critical result was discussed with Dr. Hall on 09/29/2020 4:56 AM, and it was ascertained that the content and urgency of the report was understood at the time of direct communication. Dictated By:ELIF BOATENG MDSigned By:<Electronically signed by ELIF BOATENG MD in OV> ECG Data Attestation: I personally reviewed and interpreted this ECG as follows: Interpretation: Atrial fibrillation with heart rate [address] T wave changes no acute ischemia NIH Stroke Scale Internal: Initial- Upon Arrival Level of Consciousness: Alert Level of Consciousness Questions: Answers both questions correctly Level of Consciousness Commands: Performs both tasks correctly Best Gaze: Normal Visual: No visual loss Facial Palsy: Partial paralysis Motor Arm (Right): No drift Motor Arm (Left): No effort against gravity Motor Leg (Right): No drift Motor Leg (Left): No effort against gravity Limb Ataxia: Absent Sensory: Normal Best Language: No aphasia Dysarthia: Mild to moderate dysarthria Extinction and Inattention: No abnormality Score: 9 Critical Care Time Critical Care Time Critical Care Time: Yes Total Critical Care Time: 45 Attestation: I spent 45 minutes of critical care, with interventions, assessments, speaking to patient, consultants, and family. Discharge Plan Discharge Clinical Impression: Cerebrovascular accident Qualifiers: CVA mechanism: thrombosis Precerebral and cerebral artery: middle cerebral artery Laterality of affected vessel: right Qualified Code(s): I63.311 - Cerebral infarction due to thrombosis of right middle cerebral artery Patient Disposition: [facility] Transfer Details: [facility] ER Prescriptions: No Action finasteride 5 mg tablet 5 mg PO DAILY 90 Days Qty: 90 RF: 2 atorvastatin 20 mg tablet 20 mg PO DAILY Qty: 90 RF: 1 lisinopril 40 mg tablet 40 mg PO DAILY Qty: 90 RF: 1 furosemide 40 mg tablet 20 mg PO Q OTHER DAY Qty: 45 RF: 1 metoprolol tartrate 50 mg tablet 75 mg PO BID 90 Days Qty: 270 RF: 3 levofloxacin 500 mg tablet 500 mg PO DAILY 5 Days Qty: 5 RF: 0 metronidazole [Flagyl] 500 mg tablet 500 mg PO BID Qty: 10 RF: 0 Interventions: Acute Care Transfer Worksheet (ED) Last Done: 09/29/20 05:56 Discharge Date/Time: 09/29/20 05:58
[2020-09-29 04:36] VITALS: BP 131/81; PULSE 112; RESP 14; TEMP 37.1; O2SAT 95
[2020-09-29 04:47] LABS: Glucose, Whole Blood 160 mg/dL (60-115)
[2020-09-29 04:47] LABS: Prothrombin Time Whole Bld POC 14.3 sec (11.1-13.5); ~PT, ~INR - Anti Coag Clinic 1.2 (0.9-1.1)
[2020-09-29 04:59] LABS: Basophils Absolute Auto 0.1 X10*3/uL (0.0-0.2); Basophils Percent Auto 0.9 % (0-2); Eosinophils Percent Auto 0.4 % (0-4); Hematocrit 44.6 % (42-52); Hemoglobin 14.6 g/dl (14.0-18.0); Imm Gran Abs Auto 0.03 X10*3/uL (0.00-0.03); Imm Gran Pct Auto 0.3 % (0.0-0.4); Lymphocytes Absolute Auto 1.5 X10*3/uL (1.2-4.9); Lymphocytes Percent Auto 13.4 % (20-40); Mean Corpuscular HGB Conc 32.7 g/dl (31.0-36.0); Mean Corpuscular Hemoglobin 28.9 pg (27.0-33.0); Mean Corpuscular Volume 88.3 fL (80-98); Monocytes Absolute Auto 0.8 X10*3/uL (0.1-1.2); Monocytes Percent Auto 7.5 % (2-11); Neutrophils Absolute Auto 8.4 X10*3/uL (2.0-8.3); Neutrophils Percent Auto 77.5 % (45-73); Platelet Count 165 X10*3/uL (160-400); Red Blood Count 5.05 X10*6/uL (4.60-5.80); Red Cell Distribution Width 13.1 % (11.0-16.0); White Blood Count 10.9 X10*3/uL (4.8-10.8)
[2020-09-29 05:00] LABS: MANUAL DIFF FLAG NO
[2020-09-29 05:01] LABS: Stroke Lab Use COMPLETE
[2020-09-29 05:02] VITALS: BP 140/90; PULSE 130; RESP 14; TEMP 36.7; O2SAT 94
[2020-09-29] MEDS: iohexoL 350 MG/ML 100 ML INFUS..BTL 85 ML IV (05:04)
[2020-09-29 05:05] LABS: INTERNATIONAL NORM RATIO 1.3 (0.9-1.1); Prothrombin Time 14.6 SEC (9.9-13.0)
[2020-09-29] MEDS: ondansetron HCL 4 MG/2 ML VIAL IVPUSH (05:05)
--- NOTE | 2020-09-29 05:05 | PC.NURSE ---
Addendum entered by Alicia Fong 09/29/20 05:57: Correction: Arrives by EMS @ 0425. Assessed by MD Hall. Pt transported straight to CT. Original Note: Arrives by EMS. Assessed by MD Hall. Pt transported straight to CT.
--- NOTE | 2020-09-29 05:07 | PC.NURSE ---
Pt arrives by EMS as a stroke alert with a LKW of 09/28. Pt found by @ 0400 with AMS, left sided weakness, left facial droop and slurred speech. IVs x 2, EKG obtained while in CT. psychiatric technician assistant at bedside for POC and PT/INR. VSS at this time, pt noted to be in Afib. Pt vomiting while in CT, aware. O2 sat 94% on RA. Pt transported into room 4 @ 0500. Pt provided with warm blankets per request. psychiatric technician assistant at bedside for niko. Pt and aware of plan to transfer to [facility].
--- NOTE | 2020-09-29 05:10 | PC.NURSE ---
call to [facility] for transfer, waiting for call back
--- NOTE | 2020-09-29 05:11 | PC.NURSE ---
Pt medicated with Zofran due to vomiting. MD aware of concern for aspiration.
--- NOTE | 2020-09-29 05:17 | PC.NURSE ---
Family at bedside.
[2020-09-29 05:20] LABS: Anion Gap 15 (12-20); Blood Urea Nitrogen 13 mg/dL (9-16); Calcium 8.6 mg/dL (8.4-10.2); Carbon Dioxide 24 mmol/L (22-29); Chloride 101 mmol/L (96-108); Estimated Glomerular Filt Rate > 60; Glucose Random 168 mg/dL (60-115); Potassium 4.2 mmol/L (3.3-5.1); Sodium 136 mmol/L (135-145)
[2020-09-29 05:23] LABS: Glucose Urine UA NEG (NEG); Leukocyte Esterase Urine NEG (NEG); Nitrite Urine NEG (NEG); PH 6.5 (5.0-8.0); Urine Blood TRACE (NEG); Urine Ketones NEG (NEG); Urine Protein TRACE MG/DL (NEG-TRACE)
[2020-09-29 05:26] LABS: Appearance Urine CLEAR; Color Urine YELLOW
--- NOTE | 2020-09-29 05:26 | PC.NURSE ---
Failed swallow eval due to AMS and vomiting. MD aware. Plan for ASA and DC to [facility].
[2020-09-29] MEDS: Aspirin 300 MG SUPP.RECT PR (05:28)
[2020-09-29 05:30] LABS: RBC Urine 0-2 /HPF (0); Squamous Epithelial Cell Urine TRACE /LPF; WBC Urine 0-2 /HPF (0-4)
--- NOTE | 2020-09-29 05:35 | PC.NURSE ---
Pt medicated with ASA. EMS at bedside for transport.
--- NOTE | 2020-09-29 05:39 | PC.NURSE ---
This RN calling [facility] ED, ED not answering phone.
[2020-09-29 05:50] LABS: COVID-19 Test Negative (Negative); IDNOW Serial# 9DD0AD1C
--- NOTE | 2020-09-29 05:55 | PC.NURSE ---
Report given to LAN James.
== END 2020-09-29 05:58 | disposition short-term general hospital (02) ==
PROVIDERS: Emergency Provider Internal Medicine; PCP Nurse Practitioner Family
DX: I63.311 Cerebral infarction due to thrombosis of right middle cerebral artery (principal); I10 Essential (primary) hypertension; R29.709 NIHSS score 9; I25.10 Atherosclerotic heart disease of native coronary artery without angina pectoris; Z95.1 Presence of aortocoronary bypass graft; Z85.46 Personal history of malignant neoplasm of prostate; Z20.822 Contact with and (suspected) exposure to COVID-19
CPT/HCPCS: 36415; 70450; 70496; 70498; 80048; 81001; 82947; 84484; 85025; 85610; 87635; 93005; 96374; 99285; 99291; J2405; Q9967